=== PATIENT | female | born 1945 | race Caucasian/White ===

== ENCOUNTER 2019-12-07 11:01 | Outpatient (CLI) | payer MEDICARE, SELFPAY ==
--- NOTE | ~2019-12-07 | MMUS_ITS ---
EXAMINATION: MM diagnostic kristina LT w mehran, US breast LT limited HISTORY: Left lateral breast pain for 2 to 3 weeks, resolved over past few days TECHNIQUE: ML, MLO and cc full field and upper outer quadrant spot 3-D tomosynthesis images of the le ft breast were performed and synthetic 2-D images were generated. CAD analysis was submitted and inte rpreted. High resolution upper outer quadrant left breast ultrasound was performed. COMPARISON: 04/07/2019, 08/20/2017, 01/28/2016 bilateral digital screening mammogram examinations BREAST PARENCHYMAL COMPOSITION: There are scattered areas of fibroglandular density. FINDINGS: MAMMOGRAPHIC FINDINGS: Occasional benign calcifications. No suspicious mass or architectural distortion, malignant calcification, skin thickening or retractio n or significant new or developing density is detected. ULTRASOUND: No suspicious mass or shadowing is detected. IMPRESSION: 1. No mammographic evidence of malignancy 2. Routine mammographic screening is recommended. BI-RADS Category 2: Benign finding(s). Reviewed, dictated and finalized at location A. IMPRESSION: 1. No mammographic evidence of malignancy 2. Routine mammographic screening is recommended. BI-RADS Category 2: Benign finding(s).
== END 2019-12-07 11:02 | disposition home or self-care (01) ==
LOC: ANHIMG 11:03
PROVIDERS: PCP Family Medicine; Visit Provider Physician Assistant
DX: N64.4 Mastodynia (principal)
CPT/HCPCS: 76642; 77061; 77065; G0279

== ENCOUNTER 2020-01-14 16:42 | Emergency (ER) | payer MEDICARE, SELFPAY ==
[2020-01-14 17:00] VITALS: BP 181/76; PULSE 86; RESP 18; TEMP 36.9; O2SAT 99
[2020-01-14 17:19] LABS: Basophils Absolute Auto 0.1 K/mm3 (0.0-0.1); Basophils Percent Auto 0.7 % (0.2-1.2); Eosinophils Absolute Auto 0.2 K/mm3 (0-0.3); Eosinophils Percent Auto 1.9 % (0-4.4); Hematocrit 42.8 % (37.0-47.0); Immature Granulocyte Absolute 0.07 K/mm3 (0.00-0.031); Immature Granulocyte Percent A 0.7 % (0-0.5); Lymphocytes Absolute Auto 2.25 K/mm3 (0.9-3.2); Lymphocytes Percent Auto 22.9 % (18.3-44.2); Mean Corpuscular HGB Conc 32.7 g/dl (32-36); Mean Corpuscular Hemoglobin 29.4 pg (26-34); Mean Corpuscular Volume 89.7 fl (80-100); Mean Platelet Volume 9.7 fl (7.4-10.4); Monocytes Absolute Auto 0.6 K/mm3 (0.1-0.6); Neutrophils Absolute Auto 6.7 K/mm3 (1.3-6.7); Neutrophils Percent Auto 67.8 % (45.5-73.1); Platelet Count Result 327 k/mm3 (150-375); Red Blood Count 4.77 M/mm3 (4.2-5.4); Red Cell Distribution Width 13.9 % (11.5-14.5); White Blood Count 9.8 K/mm3 (4.5-10.0)
[2020-01-14 17:23] LABS: Add Urine Microscopic? YES; Appearance Urine Clear (Clear); Bilirubin Urine Negative (Negative); Blood Urine Negative (Negative); Color Urine Straw (Yellow); Glucose Urine UA 3+ mg/dL (Negative); Ketones Urine Negative (Negative); Leukocyte Esterase Ur 1+ LEU/UL (Negative); Nitrate Urine Negative (Negative); Protein Urine 1+ mg/dL (Negative); Specific Grav Ur 1.025 (1.001-1.035); Squamous Epithelial Cell Urine Few /hpf (Few); Urobilinogen Urine Negative mg/dL (<2.0)
[2020-01-14 17:36] LABS: Alanine Aminotransferase 41 U/L (4-35); Albumin Level 4.3 g/dL (3.5-5.1); Alkaline Phosphatase 152 U/L (38-126); Aspartate Amino Transferase 115 U/L (14-36); Bilirubin,Total 0.3 mg/dL (0.2-1.3); Blood Urea Nitrogen 22 mg/dL (7-17); Calcium 9.8 mg/dL (8.4-10.2); Carbon Dioxide 24 mmol/L (22-30); Chloride 96 mmol/L (98-107); Estimated CRCL calculation 45 ml/min; Estimated Glomerular Filt Rate 48; Glucose 505 mg/dL (65-105); Magnesium 1.5 mg/dL (1.6-2.3); Phosphorus 3.5 mg/dL (2.5-4.5); Potassium 4.2 mmol/L (3.4-5.0); Sodium 133 mmol/L (137-145)
[2020-01-14 17:37] LABS: Beta-Hydroxybutyrate/Acetoacetate 0.21 mmol/L (0.02-0.27)
--- NOTE | 2020-01-14 18:05 | ED.DIZZY ---
HPI - Dizziness General Chief Complaint: Dizziness Stated Complaint: dizzy, high blood sugar, from express care Time Seen by Provider: 01/14/20 17:54 History of Present Illness HPI Narrative: Dizziness increasing over the past few months. Worst on standing. Associated with frequent urination and increased thirst. Went to urgent care today and found blood sugar to be greater than 500. She has a h/o type 2 DM and has been stable on metformin 500 mg BID for a long time. She does not check her blood sugar. Related Data Home Medications Medication Instructions Recorded Confirmed metformin 500 mg tablet 500 mg PO BID 06/13/19 11/28/19 metoprolol tartrate 25 mg tablet 25 mg PO DAILY 06/13/19 11/28/19 topiramate 50 mg tablet 50 mg PO DAILY 06/13/19 11/28/19 triamterene 75 1 tablet PO DAILY 06/13/19 11/28/19 mg-hydrochlorothiazide 50 mg tablet alprazolam 1 mg PO HS 01/14/20 bupropion HCl [Wellbutrin SR] 200 mg PO DAILY 01/14/20 fenofibrate nanocrystallized 145 mg PO DAILY 01/14/20 Allergies Allergy/AdvReac Type Severity Reaction Status Date / Time amitriptyline Allergy Unknown Heart race Verified 01/14/20 17:00 fluoxetine Allergy Unknown Acted Verified 01/14/20 17:00 strange sertraline Allergy Unknown Pt does Verified 01/14/20 17:00 not remember Review of Systems Review of Systems: All systems reviewed & are unremarkable except as noted in HPI and below Constitutional: Constitutional: Denies chills and Denies fever(s) ENT: Denies sore throat Cardiovascular: Cardiovascular: Denies chest pain Respiratory: Respiratory: Denies dyspnea Gastrointestinal: Gastrointestinal: Denies abdominal pain, Denies diarrhea, Denies nausea and Denies vomiting Genitourinary: Genitourinary: Denies hematuria, Reports nocturia and Denies dysuria Musculoskeletal: Musculoskeletal: Denies back pain Integumentary/Breasts: Skin/Breast: Denies rash Neurologic: Reports dizziness, Denies syncope and Reports weakness Endocrine: Endocrine: Reports polydipsia and Reports polyuria [facility] Surgical History Surgical History H/O arthroscopy of knee H/O bilateral salpingo-oophorectomy H/O hernia repair H/O: hysterectomy History of bilateral knee replacement History of knee replacement History of tonsillectomy Family History Family History Father Hypertension Family history of lung cancer Patient's father is , Onset Age: 40 Mother Family history of malignant neoplasm of ovary Hypertension Patient's mother is , Onset Age: 73 Grandparent Diabetes mellitus Carcinoma of colon Other Cerebrovascular accident Family history of malignant neoplasm of breast Social History Social History Smoking status: Never smoker Second hand tobacco smoke exposure: No Alcohol intake: never Gender identity (if verbalized by the patient): Female Exam Const: General: healthy appearing, no acute distress and alert Orientation/consciousness: patient oriented x3 HENMT: Mouth: Yes dry mucous membranes Neck: Neck: normal visual inspection and no lymphadenopathy Chest: Chest palpation & inspection: no tenderness Resp: Effort & Inspection: normal respiratory effort Auscultation: clear to auscultation bilaterally, no rales, no rhonchi and no wheezes Cardio: Jugular venous distension: no JVD Rate: regular rate Rhythm: regular rhythm Heart sounds: no murmurs GI: Inspection: non-distended GI Palp: Yes Soft to palpation and No Tenderness to palpation present (GI) Skin: General skin exam: normal color Neuro: General: patient oriented x3 and moves all extremities Speech: normal speech Extrem: General: no edema Psych: Appearance: well kempt Affect: normal affect Course Vital Signs Vital signs: Vital Signs
[2020-01-14] MEDS: INSULIN HUMAN REGULAR (*BKC) 100 UNITS/ML 10 UNITS IV PUSH (18:48)
[2020-01-14] MEDS: SODIUM CHLORIDE 0.9% IV 2,000 ML 999 ML IV CONT (18:48)
[2020-01-14] MEDS: MAGNESIUM SULF 2 GM/WATER 50ML 2 GM/50 ML BAG IVPB (18:52)
[2020-01-14 20:00] LABS: Glucose Point of Care 241 (65-105)
[2020-01-14 20:53] VITALS: PULSE 84; RESP 16; O2SAT 100
[2020-01-15 06:09] LABS: Glucose Point of Care 454 (65-105)
== END 2020-01-14 20:46 | disposition home or self-care (01) ==
PROVIDERS: Emergency Medicine; Emergency Provider Emergency Medicine; PCP Family Medicine
DX: E11.65 Type 2 diabetes mellitus with hyperglycemia (principal); Z79.84 Long term (current) use of oral hypoglycemic drugs; Z96.653 Presence of artificial knee joint, bilateral
CPT/HCPCS: 36415; 80053; 81001; 82010; 82948; 83735; 84100; 85025; 96361; 96365; 96375; 99284; J1815; J3475; J7030

== ENCOUNTER 2020-05-26 16:35 | Emergency (ER) | payer MEDICARE, SELFPAY ==
[2020-05-26] VITALS (14 sets, daily range): BP systolic 144–193; BP diastolic 65–84; PULSE 76–93; RESP 13–20; TEMP 36.2; O2SAT 95–99
--- NOTE | ~2020-05-26 | CT_ITS ---
EXAMINATION: CTA brain carotid DATE: 05/26/2020 20:05 INDICATION: Dizziness. Headache. TECHNIQUE: Computed tomographic angiography (CTA) of the head was performed without and with 100 mL O mnipaque-350 intravenous contrast. CTA of the neck was performed with intravenous contrast. Automated exposure control and iterative reconstruction technique were employed. The dose-length product was 1 136.96 mGy-cm. Maximum intensity projection and volume rendered 3D-reconstructions were created by angelique solorio technologist on a separate workstation. COMPARISON: Head CT 04/25/2020 FINDINGS: HEAD CTA: There are scattered areas of low attenuation in the cerebral white matter. There is no intr acranial hemorrhage, acute infarction, or abnormal intracranial mass lesion. The ventricles are sheela l in size. Right vertebral artery is dominant. There is no significant stenosis of basilar artery or the posterior cerebral arteries. Right posterior communicating artery is normal. There is no signific ant stenosis of the intracranial internal carotid arteries or anterior or middle cerebral arteries. R ight A1 anterior cerebral artery segment is absent, a normal variant. Anterior communicating artery i s normal. There is a 2 mm infundibulum of left posterior communicating artery. No aneurysm. NECK CTA: There is mild scarring at the lung apices. There are no pathologically enlarged lymph nodes . There is no significant stenosis of the vertebral arteries. There is plaque in the proximal interna l carotid arteries. There is 0% stenosis of the proximal right internal carotid artery relative to no rmal distal artery lumen diameter (NASCET criteria). There is 0% stenosis of the proximal left photo intern al carotid artery relative to normal distal artery lumen diameter. There is moderate cervical spondyl osis. IMPRESSION: 1. Moderate nonspecific cerebral white matter disease, which likely represents chronic small vessel i schemic disease. 2. No aneurysm or significant intracranial arterial stenosis. 3. 0% stenosis of the proximal internal carotid arteries relative to normal distal artery lumen diame ters (NASCET criteria). Reviewed, dictated and finalized at location A. NICAL SALES SUPPORT MANAGER IMPRESSION: 1. Moderate nonspecific cerebral white matter disease, which likely represents chronic small vessel ischemic disease. 2. No aneurysm or significant intracranial arterial stenosis. 3. 0% stenosis of the proximal internal carotid arteries relative to normal dis scar artery lumen diameters (NASCET criteria).
--- NOTE | ~2020-05-26 | XR_ITS ---
EXAMINATION: XR chest 2V DATE: 05/26/2020 18:56 INDICATION: Dizziness. Nausea. TECHNIQUE: Frontal and lateral views of the chest were obtained. COMPARISON: Chest 2 views 08/05/2016, CT abdomen and pelvis 11/21/2014 FINDINGS: The chest demonstrates clear lungs without pneumonia, pleural effusion, or pneumothorax. Th e heart size is normal. IMPRESSION: 1. No acute cardiopulmonary disease. Reviewed, dictated and finalized at location A. F LIFESTYLE OFFICER
--- NOTE | ~2020-05-26 | CT_ITS ---
EXAMINATION: CT brain wo con DATE: 05/26/2020 18:49 INDICATION: Dizziness. Headache. TECHNIQUE: Computed tomography (CT) of the head was performed without intravenous contrast. The mA wa s adjusted according to patient size. Iterative reconstruction technique was employed. The dose-lengt h product was 605.33 mGy-cm. COMPARISON: None FINDINGS: There are scattered areas of low attenuation in the cerebral white matter. There is no intr acranial hemorrhage, acute infarction, or abnormal intracranial mass lesion. The ventricles are sheela l in size. The orbits are normal. The mastoid air cells are normal. There is mild mucosal thickening in the ethmoid sinuses. IMPRESSION: 1. Moderate nonspecific cerebral white matter disease, which likely represents chronic small vessel i schemic disease. Reviewed, dictated and finalized at location A. ITURE FABRICATOR IMPRESSION: 1. Moderate nonspecific cerebral white matter disease, which likely represents chronic small vessel ischemic disease.
--- NOTE | 2020-05-26 18:30 | ECG_ITS ---
Measurements Intervals [place] Rate: 81 P: 54 [place]: 194 QRS: 0 QRSD: 145 T: 14 QT: 433 QTc: 506 Interpretive Statements SINUS RHYTHM POSSIBLE LEFT ATRIAL ENLARGEMENT RIGHT BUNDLE BRANCH BLOCK BASELINE ARTIFACT- V4-V5 ABNORMAL ECG Electronically Signed On 05-27-2020 7:52:45 WOODS OVERSEER by Mino Blackwell D.O.
--- NOTE | 2020-05-26 18:36 | ED.HA ---
HPI - Headache General Chief Complaint: Headache Stated Complaint: headache- told by to come in Time Seen by Provider: 05/26/20 18:22 Source: patient Mode of arrival: ambulatory Limitations: no limitations History of Present Illness HPI Narrative: This is a 74 year old female that presents to the ER for headaches x 3 weeks. Reports she has been having headaches daily that are somewhat relieved with ibuprofen. Reports she has been constantly lightheaded. Reports nausea associated with headaches. Denies fever, vision changes, vomiting, numbness or weakness. Related Data Home Medications Medication Instructions Recorded Confirmed metformin 500 mg tablet 500 mg PO BID 06/13/19 11/28/19 metoprolol tartrate 25 mg tablet 25 mg PO DAILY 06/13/19 11/28/19 topiramate 50 mg tablet 50 mg PO DAILY 06/13/19 11/28/19 alprazolam 1 mg PO HS 01/14/20 Allergies Allergy/AdvReac Type Severity Reaction Status Date / Time sertraline Allergy Unknown Pt does Verified 05/26/20 18:03 not remember amitriptyline AdvReac Unknown Heart race Verified 05/26/20 18:03 fluoxetine AdvReac Unknown Acted Verified 05/26/20 18:03 strange Review of Systems Review of Systems: Narrative: CONSTITUTIONAL: Denies fever EYES: Denies visual changes ENT: Denies rhinorrhea, congestion, sore throat CARDIOVASCULAR: Denies chest pain RESPIRATORY: Denies dyspnea. GASTROINTESTINAL: Reports nausea. Denies vomiting GENITOURINARY: Reports dysuria NEUROLOGIC: Reports headache. Denies numbness, or weakness. All systems reviewed & are unremarkable except as noted in HPI and below PMFSH Past Medical History Medical History (Updated 05/26/20 @ 21:22 by Shayla Fletcher PA-C) Cholecystectomy planned Encounter for blood transfusion Essential (primary) hypertension Type 2 diabetes mellitus Surgical History Surgical History H/O arthroscopy of knee H/O bilateral salpingo-oophorectomy H/O hernia repair H/O: hysterectomy History of bilateral knee replacement History of knee replacement History of tonsillectomy Family History Family History Father Hypertension Family history of lung cancer Patient's father is , Onset Age: 40 Mother Family history of malignant neoplasm of ovary Hypertension Patient's mother is , Onset Age: 73 Grandparent Diabetes mellitus Carcinoma of colon Other Cerebrovascular accident Family history of malignant neoplasm of breast Social History Social History (Reviewed 03/30/20 @ 09:08 by Emerita Augustin [facility]) Smoking status: Never smoker Second hand tobacco smoke exposure: No Alcohol intake: never Gender identity (if verbalized by the patient): Female Exam Narrative: Exam Narrative: GENERAL: Well-appearing, well-nourished, and in no acute distress. HEAD: Normocephalic, atraumatic. EYES: PERRLA and EOMI. ENT: Nares clear, no rhinorrhea or epistaxis. Mucous membranes moist. Oropharynx without tonsillar hypertrophy exudate or other lesions. Bilateral TMs pearly milton non-bulging NECK: Supple. No adenopathy or masses. CHEST: Clear to auscultation. No respiratory distress. No wheezes rales or rhonchi HEART: Regular rate and rhythm. No murmur heard. Normal peripheral pulses. EXTREMITIES: Normal range of motion. No edema. Strength equal in bilateral upper and lower extremities (5/5) SKIN: Warm, dry, no rash. NEURO: No focal deficits. Alert and oriented x3. CN II-XII grossly intact PSYCH: Normal mood and affect Course Consultations Consultation #1: Spoke with Dr. Reyna about patient and work-up. Would like her to double up on her losartan/HCTZ. Will follow-up with her in clinic. Date: 05/26/20 Time: 21:21 Vital Signs Vital signs: Vital Signs Temperature 97.1 F L 05/26/20 17:57 Pulse Rate 86 05/26/20 17:57 Respiratory Rate 16 05/26/20 17:57 Bl
[2020-05-26 19:16] LABS: Basophils Percent Auto 0.4 % (0.2-1.2); Eosinophils Absolute Auto 0.3 K/mm3 (0-0.3); Eosinophils Percent Auto 3.5 % (0-4.4); Hematocrit 35.9 % (37.0-47.0); Hemoglobin 12.5 g/dL (12.0-15.0); Immature Granulocyte Absolute 0.02 K/mm3 (0.00-0.031); Immature Granulocyte Percent A 0.2 % (0-0.5); Lymphocytes Absolute Auto 1.55 K/mm3 (0.9-3.2); Lymphocytes Percent Auto 17.3 % (18.3-44.2); Mean Corpuscular HGB Conc 34.8 g/dl (32-36); Mean Corpuscular Volume 86.1 fl (80-100); Mean Platelet Volume 8.8 fl (7.4-10.4); Monocytes Absolute Auto 0.5 K/mm3 (0.1-0.6); Monocytes Percent Auto 5.6 % (2.6-8.5); Neutrophils Absolute Auto 6.5 K/mm3 (1.3-6.7); Platelet Count Result 182 k/mm3 (150-375); Red Blood Count 4.17 M/mm3 (4.2-5.4); Red Cell Distribution Width 13.2 % (11.5-14.5); White Blood Count 8.9 K/mm3 (4.5-10.0)
[2020-05-26 19:27] LABS: Alanine Aminotransferase 23 U/L (4-35); Albumin Level 4.4 g/dL (3.5-5.1); Alkaline Phosphatase 74 U/L (38-126); Anion Gap 13 mmol/L (8-16); Aspartate Amino Transferase 32 U/L (14-36); Bilirubin,Total 0.3 mg/dL (0.2-1.3); Blood Urea Nitrogen 17 mg/dL (7-17); Calcium 9.6 mg/dL (8.4-10.2); Carbon Dioxide 23 mmol/L (22-30); Chloride 93 mmol/L (98-107); Estimated CRCL calculation 42 ml/min; Estimated Glomerular Filt Rate 48; Glucose 87 mg/dL (65-105); Sodium 129 mmol/L (137-145)
[2020-05-26] MEDS: diphenhydrAMINE HCl INJ 50 MG/ML VIAL 25 MG IV PUSH (19:38)
[2020-05-26] MEDS: METOCLOPRAMIDE HCL INJ 10 MG/2 ML VIAL IV PUSH (19:38)
[2020-05-26] MEDS: SODIUM CHLORIDE 0.9% IV 1,000 ML 999 ML IV CONT (19:40)
[2020-05-26 19:51] LABS: Erythrocyte Sedimentation Rate 23 mm/hr (0-20)
[2020-05-26 20:53] LABS: Add Urine Microscopic? YES; Appearance Urine Clear (Clear); Bacteria Urine Trace /hpf; Bilirubin Urine Negative (Negative); Blood Urine Negative (Negative); Color Urine Yellow (Yellow); Glucose Urine UA Negative (Negative); Ketones Urine Negative (Negative); Leukocyte Esterase Ur 2+ LEU/UL (Negative); Mucus Urine Rare /lpf; Nitrate Urine Negative (Negative); Protein Urine Negative (Negative); Specific Grav Ur 1.018 (1.001-1.035); Squamous Epithelial Cell Urine Rare /hpf (Few); Urobilinogen Urine Negative mg/dL (<2.0); WBC Urine 21-30 /hpf
== END 2020-05-26 21:30 | disposition home or self-care (01) ==
PROVIDERS: Physician Assistant; Emergency Provider Emergency Medicine; PCP Family Medicine
DX: R51.9 Headache, unspecified (principal); I10 Essential (primary) hypertension; N30.00 Acute cystitis without hematuria; E11.9 Type 2 diabetes mellitus without complications; Z79.84 Long term (current) use of oral hypoglycemic drugs; Z96.659 Presence of unspecified artificial knee joint; I45.10 Unspecified right bundle-branch block; R94.31 Abnormal electrocardiogram [ECG] [EKG]; R90.82 White matter disease, unspecified
CPT/HCPCS: 36415; 70450; 70496; 70498; 71046; 80053; 81001; 85025; 85652; 87077; 87086; 87088; 87186; 93005; 96361; 96374; 96375; 99284; J0131; J1200; J2765; J7030; Q9967

== ENCOUNTER 2020-10-26 01:46 | Inpatient (IN) | payer MEDICARE, SELFPAY ==
[2020-10-26] VITALS (12 sets, daily range): BP systolic 120–164; BP diastolic 52–70; PULSE 63–111; RESP 12–28; TEMP 36.4–39.3; O2SAT 96–99; BMI 36.3
--- NOTE | ~2020-10-26 | XR_ITS ---
EXAMINATION: XR chest 2V DATE: 10/26/2020 02:22 INDICATION: Shortness of breath. TECHNIQUE: Frontal and lateral views of the chest were obtained. COMPARISON: Chest 2 views 05/26/2020 FINDINGS: The chest demonstrates clear lungs without pneumonia, pleural effusion, or pneumothorax. Th e heart size is normal. IMPRESSION: 1. No acute cardiopulmonary disease. Reviewed, dictated and finalized at location A.
--- NOTE | 2020-10-26 01:58 | ECG_ITS ---
Measurements Intervals [place] Rate: 112 P: 36 CO: 175 QRS: -16 QRSD: 122 T: 15 QT: 344 QTc: 472 Interpretive Statements SINUS TACHYCARDIA POSSIBLE LEFT ATRIAL ENLARGEMENT RIGHT BUNDLE BRANCH BLOCK ABNORMAL ECG Electronically Signed On 10-30-2020 10:42:36 CDT by Mino Blackwell D.O.
[2020-10-26] MEDS: ACETAMINOPHEN 500 MG TABLET 1000 MG PO (02:14)
[2020-10-26 02:15] LABS: Basophils Percent Auto 0.5 % (0.2-1.2); Eosinophils Absolute Auto 0.3 K/mm3 (0-0.3); Eosinophils Percent Auto 4.3 % (0-4.4); Hematocrit 39.5 % (37.0-47.0); Immature Granulocyte Absolute 0.04 K/mm3 (0.00-0.031); Immature Granulocyte Percent A 0.5 % (0-0.5); Lymphocytes Absolute Auto 0.77 K/mm3 (0.9-3.2); Lymphocytes Percent Auto 9.8 % (18.3-44.2); Mean Corpuscular HGB Conc 32.9 g/dl (32-36); Mean Platelet Volume 9.2 fl (7.4-10.4); Monocytes Absolute Auto 0.2 K/mm3 (0.1-0.6); Monocytes Percent Auto 3.1 % (2.6-8.5); Neutrophils Absolute Auto 6.4 K/mm3 (1.3-6.7); Neutrophils Percent Auto 81.8 % (45.5-73.1); Platelet Count Result 176 k/mm3 (150-375); Red Blood Count 4.34 M/mm3 (4.2-5.4); Red Cell Distribution Width 13.4 % (11.5-14.5); White Blood Count 7.8 K/mm3 (4.5-10.0)
[2020-10-26] MEDS: SODIUM CHLORIDE 0.9% IV 1,000 ML 999 ML IV CONT ×2 (02:15→02:33)
[2020-10-26 02:27] LABS: Anion Gap 12 mmol/L (8-16); Blood Urea Nitrogen 32 mg/dL (7-17); Calcium 9.6 mg/dL (8.4-10.2); Carbon Dioxide 20 mmol/L (22-30); Chloride 109 mmol/L (98-107); Estimated CRCL calculation 28 ml/min; Estimated Glomerular Filt Rate 29; Glucose 133 mg/dL (65-105); Potassium 4.6 mmol/L (3.4-5.0); Sodium 141 mmol/L (137-145)
[2020-10-26 03:41] LABS: Add Urine Microscopic? YES; Appearance Urine Cloudy (Clear); Bacteria Urine Trace /hpf; Bilirubin Urine Negative (Negative); Blood Urine Negative (Negative); Color Urine Yellow (Yellow); Glucose Urine UA Negative (Negative); Ketones Urine Negative (Negative); Leukocyte Esterase Ur 3+ LEU/UL (Negative); Mucus Urine Rare /lpf; Nitrate Urine Negative (Negative); Protein Urine 2+ mg/dL (Negative); Specific Grav Ur 1.018 (1.001-1.035); Squamous Epithelial Cell Urine Many /hpf (Few); WBC Urine 51-75 /hpf
--- NOTE | 2020-10-26 04:13 | ED.WEAKNESS ---
HPI - Weakness General Chief complaint: Weakness Stated complaint: weakness, tremors, confusion Time Seen by Provider: 10/26/20 01:59 History of Present Illness HPI Narrative: Patient is a 74-year-old female who presents ER with altered mental status and shakiness. reports patient became very shaky at night like she was cold. They decided leave the house. Upon leaving the house, the ER patient thought she was attending a baby shower and thought the president was Xander Cruz. Patient is not reporting any pain or discomfort. She is confused but not particularly distressed. Febrile upon arrival. Related Data Home Medications Medication Instructions Recorded Confirmed topiramate 50 mg tablet 50 mg PO DAILY 06/13/19 11/28/19 Allergies Allergy/AdvReac Type Severity Reaction Status Date / Time sertraline Allergy Unknown Pt does Verified 10/26/20 02:20 not remember amitriptyline AdvReac Unknown Heart race Verified 10/26/20 02:20 fluoxetine AdvReac Unknown Acted Verified 10/26/20 02:20 strange Review of Systems Review of Systems: All systems reviewed & are unremarkable except as noted in HPI and below Constitutional: Constitutional: Reports chills, Reports fever(s) and Reports weakness Gastrointestinal: Gastrointestinal: Denies abdominal pain, Denies nausea and Denies vomiting Genitourinary: Genitourinary: Denies nocturia, Denies dysuria and Denies flank pain Neurologic: Reports confusion, Denies focal weakness and Denies numbness PMF Past Medical History Medical History (Updated 05/27/20 @ 00:00 by Megan Datamiko) Cholecystectomy planned Encounter for blood transfusion Essential (primary) hypertension Type 2 diabetes mellitus Surgical History Surgical History H/O arthroscopy of knee H/O bilateral salpingo-oophorectomy H/O hernia repair H/O: hysterectomy History of bilateral knee replacement History of knee replacement History of tonsillectomy Family History Family History Father Hypertension Family history of lung cancer Patient's father is , Onset Age: 40 Mother Family history of malignant neoplasm of ovary Hypertension Patient's mother is , Onset Age: 73 Grandparent Diabetes mellitus Carcinoma of colon Other Cerebrovascular accident Family history of malignant neoplasm of breast Social History Social History Smoking status: Never smoker Second hand tobacco smoke exposure: No Alcohol intake: never Gender identity (if verbalized by the patient): Female Exam Narrative: Exam Narrative: GENERAL: Well-appearing, well-nourished, and in no acute distress. HEAD: Normocephalic, atraumatic. ENT: Mucous membranes moist. CHEST: Clear to auscultation. No respiratory distress. HEART: Regular rate and rhythm. Normal peripheral pulses. ABDOMEN: Soft, nontender, nondistended. EXTREMITIES: Normal range of motion. No edema. SKIN: Warm, dry, no rash. NEURO: No focal deficits. Alert and oriented x1 on initial presentation. After fluids and antipyretics patient is now oriented x3.. PSYCH: Normal mood and affect. Course Course Emergency Course: Patient improving with IV fluid and IV antibiotics. Given ceftriaxone 2 L IV fluid. She is now awake alert and oriented x3. Patient's creatinine up from baseline of 1.1. Given confusion with elevated creatinine and infection would like to observe patient in hospital. Will contact hospitalist service. Vital Signs Vital signs: Vital Signs Temperature 102.8 F H 10/26/20 01:55 Pulse Rate 104 H 10/26/20 01:55 Respiratory Rate 18 10/26/20 01:55 Blood Pressure 164/67 H 10/26/20 01:55 Pulse Oximetry 96 10/26/20 01:55 Temperature 98.4 F 10/26/20 03:10 Pulse Rate 98 10/26/20 05:00 Respiratory Rate
--- NOTE | 2020-10-26 05:06 | PM.IMHP ---
H&P: HPI History of Present Illness Date/Time: 10/26/20 05:06 Chief Complaint: Weakness and confusion Narrative: 74-year-old female was about mental history of type 2 diabetes mellitus, chronic kidney disease stage 3, and hypertension who presented to the ER with confusion and weakness. Initially on arrival to the ER the patient thought she that she was going to a baby shower. She also thought that her son had brought her to the bank and did not understand why she needed to get out of the car. Evidently the patient had woken up having rigors and sudden onset of confusion. While in the ER patient was noted to have UA suggestive of UTI in her fever was 102.8?. The patient received IV fluid hydration with 2 L normal saline and IV Rocephin. After fluid resuscitation and antipyretic therapy the patient's mentation returned to baseline. She is now where that she is in [facility] and is oriented x4. She states that she has been generally weak for the last week. She has been having some dysuria also for the last week. She does have a history of prior urinary tract infections and had been referred to urology in June due to recurrent urinary tract infections but she failed to follow through with the referral. Her urine culture in May grew out Klebsiella pneumonia resistant to Bactrim and ampicillin. She did not like the idea of the physician having to examine her urethra vagina and rectum. She denies any hematuria, increased urinary frequency or urgency. She reports that she has been more fatigued and is been sleeping more than normal. She has also noticed some dizziness with standing. She denies any nausea vomiting or diarrhea. She reports that her appetite has been fair and that her weight is been stable. She denies any cough or congestion. She has not been having any shortness of breath, chest pain, headaches or visual changes. She realizes that she was quite confused earlier and is quite abused about the answer she provided to the staff in the ER. Review of Systems Review of Systems: Narrative: 12 systems were reviewed with pertinent positives and negatives per HPI. Except as documented in the HPI, all other systems were reviewed and are negative. [facility] Past Medical History Medical History (Updated 10/26/20 @ 05:37 by Janice Curtis DO) Chronic kidney disease, stage III (moderate) With baseline creatinine 1.1 Depression with anxiety Essential (primary) hypertension Gastro-esophageal reflux disease without esophagitis Gout Hyperlipidemia Hypertriglyceridemia Normal colonoscopy (~2009) Obesity Other sleep apnea will not use cpap Type 2 diabetes mellitus Surgical History Surgical History (Updated 10/26/20 @ 05:35 by Janice Curtis DO) H/O arthroscopy of knee History of bilateral knee replacement Left total knee arthroplasty 1998 with subsequent revision in 2010. Right total knee arthroplasty 1998 with revision in 2007. History of hernia repair (~2006) Incisional hernia repair with mesh History of laparoscopic cholecystectomy (05/08/11) History of right hip replacement (~07/2013) History of tonsillectomy History of total hysterectomy with bilateral salpingo-oophorectomy (BSO) Hysterectomy in 1985, bilateral oophorectomy 2002 Status post cataract extraction of both eyes with insertion of intraocular lens Family History Family History Father , at age 40 Lung cancer Carcinoma of colon Hypertension Mother , at age 73 Ovarian cancer Hypertension Grandparent Diabetes mellitus Carcinoma of colon Family history of malignant neoplasm of breast Grandparent Cerebrovascular accident Other Family history of malignant neoplasm of breast Social History Social History (Updated 10/26/20 @ 07:04 by Janice Curtis DO) Social History: She lives with her of 57 years. She has 1 biologic son and 2 adopted daugh
[2020-10-26 05:07] LABS: Lactic Acid Reflex 1.7 mmol/L (0.7-2.1)
--- NOTE | 2020-10-26 05:24 | ADMGEN ---
This patient, Joie Faust, was admitted to Medical Room 340-01. Patient/family oriented to hospital policies and general routines including ID bracelet, bed and alarms, visiting hours, pain management, procedures, bathroom and other care routines, personal items, smoking policy, room service/diet, and visiting hours. Information on how to activate the Rapid Response Team has been discussed. Patient/Family are encouraged to report perceived risks to care and to ask questions if they do not understand what they are told or what they should do.
[2020-10-26] MEDS: SODIUM CHLORIDE 0.9% IV 1,000 ML 125 ML IV CONT ×2 (05:28→14:48)
[2020-10-26 08:01] LABS: Glucose Point of Care 122 (65-105)
[2020-10-26] MEDS: ENOXAPARIN 30 MG/0.3 ML SYRINGE SUB-Q (08:19)
[2020-10-26] MEDS: PANTOPRAZOLE 40 MG TABLET PO (08:20)
[2020-10-26] MEDS: ATORVASTATIN 20 MG TABLET PO (08:20)
[2020-10-26] MEDS: allopurinoL 300 MG TABLET PO (08:20)
[2020-10-26] MEDS: TOPIRAMATE 25 MG TABLET 50 MG PO (08:20)
[2020-10-26] MEDS: LOSARTAN POTASSIUM 50 MG TABLET PO (08:20)
[2020-10-26] MEDS: buPROPion HCL SR (12HR) 100 MG TABCR 200 MG PO ×2 (08:21→20:28)
[2020-10-26] MEDS: hydroCHLOROthiazide 12.5 MG CAPSULE PO (08:21)
[2020-10-26] MEDS: FENOFIBRATE NANOCRYSTALLIZED 145 MG TABLET PO (08:21)
[2020-10-26] MEDS: METOPROLOL TARTRATE 25 MG TABLET PO (08:21)
[2020-10-26] MEDS: ALPRAZolam (*CRX) 0.5 MG TABLET 1 MG PO ×2 (08:24→16:55)
[2020-10-26 12:15] LABS: Glucose Point of Care 112 (65-105)
--- NOTE | 2020-10-26 13:27 | PM.IMPN ---
Progress Note: A&P Assessment and Plan (1) UTI (urinary tract infection): Qualifiers: Hematuria presence: without hematuria Urinary tract infection type: acute cystitis Qualified Code(s): N30.00 - Acute cystitis without hematuria Code(s): N39.0 - Urinary tract infection, site not specified Status: Acute Assessment and Plan: Patient presents with acute confusion x 1 day and generalized weakness x several days, fevers, dysuria. UA grossly abnormal. Continue her IV ceftriaxone (day 2) while awaiting urine and blood cultures. (2) Sepsis: Qualifiers: Acute renal failure type: unspecified Sepsis acute organ dysfunction status: with acute organ dysfunction Sepsis type: sepsis due to unspecified organism Severe sepsis acute organ dysfunction type: acute renal failure Severe sepsis shock status: without septic shock Qualified Code(s): A41.9 - Sepsis, unspecified organism; R65.20 - Severe sepsis without septic shock; N17.9 - Acute kidney failure, unspecified Code(s): A41.9 - Sepsis, unspecified organism Status: Acute Assessment and Plan: Evident by fever, tachycardia on arrival. Suspected source is urinary. Continue antibiotics as above while awaiting urine and blood cultures. Monitor vital signs and urine output. (3) Metabolic encephalopathy: Code(s): G93.41 - Metabolic encephalopathy Status: Acute Assessment and Plan: Resolved. No longer confused. She is sleepy today but tells me she did not sleep well last night. Suspect metabolic encephalopathy secondary to acute UTI with fevers. Resolved with initiation of treatment. Continue therapy above. (4) Essential (primary) hypertension: Code(s): I10 - Essential (primary) hypertension Status: Chronic Assessment and Plan: Blood pressures reviewed, variable but stable this morning losartan, hydrochlorothiazide, Lopressor. Hold hydrochlorothiazide given her renal function. (5) Type 2 diabetes mellitus: Qualifiers: Diabetes mellitus complication status: without complication Diabetes mellitus custodial insulin use: without custodial use Qualified Code(s): E11.9 - Type 2 diabetes mellitus without complications Code(s): E11.9 - Type 2 diabetes mellitus without complications Status: Chronic Assessment and Plan: Check Hgb A1c in AM. Home metformin is held. Continue to monitor with Accu-Cheks and cover with SSI. (6) Chronic kidney disease, stage III (moderate): Qualifiers: Chronic kidney disease stage 3 subtype: unspecified whether 3a or 3b Qualified Code(s): N18.30 - Chronic kidney disease, stage 3 unspecified Code(s): N18.30 - Chronic kidney disease, stage 3 unspecified Status: Chronic Assessment and Plan: Acute on chronic renal failure; her Cr is a bit above what appears to be her baseline may be related to recent poor PO intake. Hold metformin, hydrochlorothiazide. Continue IV hydration, decreased rate of fluids. Monitor renal function and electrolytes daily. Subjective Date/time seen: 10/26/20 1235 Interval history: Ms. Faust is a 74yo F admitted with acute UTI and confusion. She is tired but is feeling better today overall. She denies chest pain or shortness of breath. Denies nausea, vomiting or abdominal pain. Sleepy but otherwise offers no complaints. Review of Systems Review of Systems: All systems reviewed & are unremarkable except as noted in HPI and below Exam Narrative: Exam Narrative: General: Female resting Semi-woodson's position in bed in no acute distress. HEENT: Normocephalic, EOMI, oral mucosa moist. Cardiovascular: Rate and rhythm are regul
[2020-10-26 16:16] LABS: Glucose Point of Care 101 (65-105)
[2020-10-26 22:13] LABS: Glucose Point of Care 86 (65-105)
[2020-10-27] MEDS: ACETAMINOPHEN 325 MG TABLET 650 MG PO (00:03)
[2020-10-27] MEDS: SODIUM CHLORIDE 0.9% IV 1,000 ML 100 ML IV CONT ×3 (00:06→21:15)
[2020-10-27 05:36] VITALS: BP 121/50; PULSE 71; RESP 12; TEMP 37.1; O2SAT 94
[2020-10-27 06:18] LABS: Hematocrit 29.8 % (37.0-47.0); Hemoglobin 9.7 g/dL (12.0-15.0); Mean Corpuscular HGB Conc 32.6 g/dl (32-36); Mean Corpuscular Hemoglobin 29.8 pg (26-34); Mean Corpuscular Volume 91.7 fl (80-100); Mean Platelet Volume 9.3 fl (7.4-10.4); Platelet Count Result 156 k/mm3 (150-375); Red Blood Count 3.25 M/mm3 (4.2-5.4); Red Cell Distribution Width 13.4 % (11.5-14.5); White Blood Count 9.3 K/mm3 (4.5-10.0)
[2020-10-27 06:31] LABS: Anion Gap 7 mmol/L (8-16); Blood Urea Nitrogen 26 mg/dL (7-17); Calcium 8.8 mg/dL (8.4-10.2); Carbon Dioxide 21 mmol/L (22-30); Chloride 113 mmol/L (98-107); Estimated CRCL calculation 35 ml/min; Estimated Glomerular Filt Rate 37; Glucose 110 mg/dL (65-105); Magnesium 1.5 mg/dL (1.6-2.3); Sodium 141 mmol/L (137-145)
[2020-10-27 06:52] LABS: Hemoglobin A1C 5.7 % (<5.7)
[2020-10-27 07:36] LABS: Glucose Point of Care 93 (65-105)
[2020-10-27 08:24] VITALS: PULSE 74
[2020-10-27] MEDS: PANTOPRAZOLE 40 MG TABLET PO (08:24)
[2020-10-27] MEDS: ALPRAZolam (*CRX) 0.5 MG TABLET 1 MG PO ×2 (08:24→16:49)
[2020-10-27] MEDS: ENOXAPARIN 30 MG/0.3 ML SYRINGE SUB-Q (08:24)
[2020-10-27] MEDS: FENOFIBRATE NANOCRYSTALLIZED 145 MG TABLET PO (08:24)
[2020-10-27] MEDS: TOPIRAMATE 25 MG TABLET 50 MG PO (08:24)
[2020-10-27] MEDS: METOPROLOL TARTRATE 25 MG TABLET PO (08:24)
[2020-10-27] MEDS: buPROPion HCL SR (12HR) 100 MG TABCR 200 MG PO ×2 (08:24→21:15)
[2020-10-27] MEDS: allopurinoL 300 MG TABLET PO (08:24)
[2020-10-27] MEDS: LOSARTAN POTASSIUM 50 MG TABLET PO (08:25)
[2020-10-27] MEDS: ATORVASTATIN 20 MG TABLET PO (08:25)
[2020-10-27] MEDS: MAGNESIUM SULF 2 GM/WATER 50ML 2 GM/50 ML BAG IVPB (09:35)
[2020-10-27 12:36] LABS: Glucose Point of Care 124 (65-105)
--- NOTE | 2020-10-27 12:55 | PM.IMPN ---
Progress Note: A&P Assessment and Plan (1) UTI (urinary tract infection): Qualifiers: Urinary tract infection type: acute cystitis Hematuria presence: without hematuria Qualified Code(s): N30.00 - Acute cystitis without hematuria Code(s): N39.0 - Urinary tract infection, site not specified Status: Acute Assessment and Plan: Patient presents with acute confusion x 1 day and generalized weakness x several days, fevers, dysuria. UA grossly abnormal. Continue her IV ceftriaxone (day 3) while awaiting urine and blood cultures. (2) Sepsis: Qualifiers: Sepsis type: sepsis due to unspecified organism Sepsis acute organ dysfunction status: with acute organ dysfunction Severe sepsis acute organ dysfunction type: acute renal failure Acute renal failure type: unspecified Severe sepsis shock status: without septic shock Qualified Code(s): A41.9 - Sepsis, unspecified organism; R65.20 - Severe sepsis without septic shock; N17.9 - Acute kidney failure, unspecified Code(s): A41.9 - Sepsis, unspecified organism Status: Acute Assessment and Plan: Evident by fever, tachycardia on arrival. Suspected source is urinary. Continue antibiotics as above while awaiting urine and blood cultures. Monitor vital signs and urine output. (3) Metabolic encephalopathy: Code(s): G93.41 - Metabolic encephalopathy Status: Acute Assessment and Plan: Resolved. No longer confused. Suspect metabolic encephalopathy secondary to acute UTI with fevers. Resolved with initiation of treatment. Continue therapy above. (4) Essential (primary) hypertension: Code(s): I10 - Essential (primary) hypertension Status: Chronic Assessment and Plan: Blood pressures reviewed, variable but stable this morning losartan, hydrochlorothiazide, Lopressor. Hold hydrochlorothiazide given her renal function. (5) Type 2 diabetes mellitus: Qualifiers: Diabetes mellitus exterminator helper insulin use: without half-way use Diabetes mellitus complication status: without complication Qualified Code(s): E11.9 - Type 2 diabetes mellitus without complications Code(s): E11.9 - Type 2 diabetes mellitus without complications Status: Chronic Assessment and Plan: A1c 5.7%. Home metformin is held. Continue to monitor with Accu-Cheks and cover with SSI. (6) Chronic kidney disease, stage III (moderate): Qualifiers: Chronic kidney disease stage 3 subtype: unspecified whether 3a or 3b Qualified Code(s): N18.30 - Chronic kidney disease, stage 3 unspecified Code(s): N18.30 - Chronic kidney disease, stage 3 unspecified Status: Chronic Assessment and Plan: Acute on chronic renal failure; her Cr is a bit above what appears to be her baseline may be related to recent poor PO intake. Improved today. Hold metformin, hydrochlorothiazide. Continue IV hydration for now; and monitor fluid status closely and check renal function and electrolytes daily. Subjective Date/time seen: 10/27/20 1200 Interval history: Ms. Faust is a 74yo F admitted with acute UTI and confusion. She is feeling better today. She denies chest pain or shortness of breath. Tolerating meals without nausea, vomiting or abdominal pain. She describes some chronic back pain and hip pain but otherwise offers no complaints at present. Review of Systems Review of Systems: All systems reviewed & are unremarkable except as noted in HPI and below Exam Narrative: Exam Narrative: General: Female resting Semi-woodson's position in bed in no acute distress. HEENT: Normocephalic, EOMI, oral mucosa moist. Cardiovascular: Rate and rhythm are re
[2020-10-27 14:00] VITALS: BP 143/60; PULSE 72; RESP 16; TEMP 36.6; O2SAT 98
[2020-10-27 16:37] LABS: Glucose Point of Care 99 (65-105)
[2020-10-27 19:54] VITALS: BP 178/70; PULSE 66; RESP 12; TEMP 36.2; O2SAT 100
[2020-10-27 20:36] VITALS: O2SAT 99
[2020-10-27 22:44] LABS: Glucose Point of Care 123 (65-105)
[2020-10-28 05:37] VITALS: BP 156/54; PULSE 72; RESP 14; TEMP 36.8; O2SAT 99
[2020-10-28 06:17] LABS: Basophils Percent Auto 0.5 % (0.2-1.2); Eosinophils Absolute Auto 0.3 K/mm3 (0-0.3); Eosinophils Percent Auto 4.2 % (0-4.4); Hematocrit 32.2 % (37.0-47.0); Hemoglobin 10.4 g/dL (12.0-15.0); Immature Granulocyte Absolute 0.05 K/mm3 (0.00-0.031); Immature Granulocyte Percent A 0.6 % (0-0.5); Lymphocytes Absolute Auto 1.67 K/mm3 (0.9-3.2); Lymphocytes Percent Auto 21.7 % (18.3-44.2); Mean Corpuscular HGB Conc 32.3 g/dl (32-36); Mean Corpuscular Hemoglobin 29.7 pg (26-34); Mean Platelet Volume 9.5 fl (7.4-10.4); Monocytes Absolute Auto 0.6 K/mm3 (0.1-0.6); Monocytes Percent Auto 7.9 % (2.6-8.5); Neutrophils Percent Auto 65.1 % (45.5-73.1); Platelet Count Result 168 k/mm3 (150-375); Red Cell Distribution Width 13.9 % (11.5-14.5); White Blood Count 7.7 K/mm3 (4.5-10.0)
[2020-10-28 06:24] LABS: INR 0.9; Prothrombin Time 13.2 Seconds (11.1-14.7)
[2020-10-28] MEDS: SODIUM CHLORIDE 0.9% IV 1,000 ML 100 ML IV CONT (06:27)
[2020-10-28 06:30] LABS: Alanine Aminotransferase 17 U/L (4-35); Albumin Level 3.7 g/dL (3.5-5.1); Alkaline Phosphatase 65 U/L (38-126); Anion Gap 10 mmol/L (8-16); Aspartate Amino Transferase 21 U/L (14-36); Bilirubin,Total < 0.1 mg/dL (0.2-1.3); Blood Urea Nitrogen 21 mg/dL (7-17); Calcium 9.2 mg/dL (8.4-10.2); Carbon Dioxide 19 mmol/L (22-30); Chloride 115 mmol/L (98-107); Estimated CRCL calculation 35 ml/min; Estimated Glomerular Filt Rate 37; Glucose 131 mg/dL (65-105); Sodium 144 mmol/L (137-145)
[2020-10-28 06:37] LABS: Transferrin 183 mg/dL (206-381)
[2020-10-28 06:44] LABS: Iron 47 ug/dL (37-170)
[2020-10-28 06:54] LABS: Percent Iron Saturation 18 % (20-50)
[2020-10-28 07:41] LABS: Folic Acid > 20.0 ng/mL (2.76->20)
[2020-10-28 07:46] LABS: Glucose Point of Care 107 (65-105)
[2020-10-28] MEDS: ALPRAZolam (*CRX) 0.5 MG TABLET 1 MG PO (08:02)
[2020-10-28 08:03] VITALS: PULSE 72
[2020-10-28] MEDS: METOPROLOL TARTRATE 25 MG TABLET PO (08:03)
[2020-10-28] MEDS: FENOFIBRATE NANOCRYSTALLIZED 145 MG TABLET PO (08:03)
[2020-10-28] MEDS: allopurinoL 300 MG TABLET PO (08:03)
[2020-10-28] MEDS: ATORVASTATIN 20 MG TABLET PO (08:03)
[2020-10-28] MEDS: PANTOPRAZOLE 40 MG TABLET PO (08:03)
[2020-10-28] MEDS: buPROPion HCL SR (12HR) 100 MG TABCR 200 MG PO (08:03)
[2020-10-28] MEDS: TOPIRAMATE 25 MG TABLET 50 MG PO (08:03)
[2020-10-28] MEDS: ENOXAPARIN 30 MG/0.3 ML SYRINGE SUB-Q (08:03)
[2020-10-28] MEDS: LOSARTAN POTASSIUM 50 MG TABLET PO (08:04)
[2020-10-28] MEDS: CYANOCOBALAMIN INJ 1,000 MCG/ML VIAL 1000 MCG IM (10:36)
[2020-10-28 12:01] LABS: Glucose Point of Care 106 (65-105)
--- NOTE | 2020-10-28 12:08 | PM.DS ---
DS: Admitting Diagnosis Admitting Diagnosis Admitting Diagnosis: UTI DS: Discharge Diagnosis Discharge Diagnosis (1) UTI (urinary tract infection): Qualifiers: Urinary tract infection type: acute cystitis Hematuria presence: without hematuria Qualified Code(s): N30.00 - Acute cystitis without hematuria Code(s): N39.0 - Urinary tract infection, site not specified Status: Acute Assessment and Plan: Date of Admission 10/26/20 Date of Discharge 10/28/20 Ms. Faust is a 74yo F with history of type 2 diabetes mellitus, CKD, and hypertension who presented to the ED for evaluation of confusion and weakness. It was reported the patient had woken up having shaking chills and sudden onset of confusion. While in the ED patient was noted to have a UA suggestive of UTI and her fever was 102.8 F. She received IV fluid hydration 2 L normal saline as well as IV ceftriaxone and antipyretic therapy, after which her mentation returned to baseline. She was treated with 3 doses of IV ceftriaxone while awaiting urine and blood cultures. Blood cultures are negative, urine culture grew > 100,000 E coli. Sepsis criteria was met by fever, tachycardia on arrival which improved. She was clinically improved with therapy outlined above and was discharged with oral cefdinir to complete the course. She was hemodynamically stable for discharge on 10/28/2020 with instructions to follow-up with PCP. Patient presents with acute confusion x 1 day and generalized weakness x several days, fevers, dysuria. UA grossly abnormal. Urine culture grew E coli. Blood culture negative. Treated with 3 doses of IV ceftriaxone, discharged with oral cefdinir to complete course. (2) Sepsis: Qualifiers: Sepsis type: sepsis due to unspecified organism Sepsis acute organ dysfunction status: with acute organ dysfunction Severe sepsis acute organ dysfunction type: acute renal failure Acute renal failure type: unspecified Severe sepsis shock status: without septic shock Qualified Code(s): A41.9 - Sepsis, unspecified organism; R65.20 - Severe sepsis without septic shock; N17.9 - Acute kidney failure, unspecified Code(s): A41.9 - Sepsis, unspecified organism Status: Acute Assessment and Plan: Evident by fever, tachycardia on arrival. Suspected source is urinary, see above. (3) Metabolic encephalopathy: Code(s): G93.41 - Metabolic encephalopathy Status: Acute Assessment and Plan: Resolved. No longer confused. Suspect metabolic encephalopathy secondary to acute UTI with fevers. Resolved with initiation of treatment. (4) Essential (primary) hypertension: Code(s): I10 - Essential (primary) hypertension Status: Chronic Assessment and Plan: Blood pressures reviewed, variable but stable this morning losartan, hydrochlorothiazide, Lopressor. (5) Type 2 diabetes mellitus: Qualifiers: Diabetes mellitus termite treater insulin use: without termite treater use Diabetes mellitus complication status: without complication Qualified Code(s): E11.9 - Type 2 diabetes mellitus without complications Code(s): E11.9 - Type 2 diabetes mellitus without complications Status: Chronic Assessment and Plan: A1c 5.7%. Home metformin is held. Continue to monitor with Accu-Cheks and cover with SSI. (6) Chronic kidney disease, stage III (moderate): Qualifiers: Chronic kidney disease stage 3 subtype: unspecified whether 3a or 3b Qualified Code(s): N18.30 - Chronic kidney disease, stage 3 unspecified Code(s): N18.30 - Chronic kidney disease, stage 3 unspecified Status: Chronic Assessment and Plan: Acute on c
[2020-10-28 14:10] VITALS: BP 157/77; PULSE 69; RESP 24; TEMP 36.2; O2SAT 97
== END 2020-10-28 14:40 | disposition home or self-care (01) | DRG 871 ==
LOC: ANHED 02:45 → ANH3MED 04:46
PROVIDERS: Physician Assistant; Admitting Provider Internal Medicine; Emergency Provider Emergency Medicine; PCP Family Medicine; Visit Provider Hospitalist
DX: A41.9 Sepsis, unspecified organism (principal); G93.41 Metabolic encephalopathy; N39.0 Urinary tract infection, site not specified; N17.9 Acute kidney failure, unspecified; R65.20 Severe sepsis without septic shock; E11.22 Type 2 diabetes mellitus with diabetic chronic kidney disease; N18.30 Chronic kidney disease, stage 3 unspecified; I12.9 Hypertensive chronic kidney disease with stage 1 through stage 4 chronic kidney disease, or unspecified chronic kidney disease; F41.8 Other specified anxiety disorders; K21.9 Gastro-esophageal reflux disease without esophagitis; E78.5 Hyperlipidemia, unspecified; E66.9 Obesity, unspecified; G47.30 Sleep apnea, unspecified; Z96.653 Presence of artificial knee joint, bilateral; Z96.641 Presence of right artificial hip joint; Z68.36 Body mass index [BMI] 36.0-36.9, adult; Z90.722 Acquired absence of ovaries, bilateral; Z90.710 Acquired absence of both cervix and uterus; Z98.42 Cataract extraction status, left eye; Z98.41 Cataract extraction status, right eye; Z90.49 Acquired absence of other specified parts of digestive tract
CPT/HCPCS: 36415; 71046; 80048; 80053; 81001; 82607; 82728; 82746; 82948; 83036; 83540; 83550; 83605; 83735; 84466; 85025; 85027; 85610; 87040; 87077; 87086; 87088; 87186; 93005; 96361; 96365; 96372; 99285; A9270; G0378; J0696; J1650; J3420; J3475; J7030

== ENCOUNTER 2020-12-12 12:56 | Outpatient (CLI) | payer MEDICARE, SELFPAY ==
--- NOTE | ~2020-12-12 | MM_ITS ---
EXAMINATION: MM screening kristina BI w mehran HISTORY: Screening mammogram TECHNIQUE: Craniocaudal and mediolateral oblique 3-D tomosynthesis images were obtained and synthetic 2-D images were generated. CAD analysis was submitted and interpreted. COMPARISON: 12/07/2019 diagnostic left digital mammogram and limited left breast ultrasound 04/07/2019, 08/20/2017 bilateral digital screening mammogram examinations BREAST PARENCHYMAL COMPOSITION: There are scattered areas of fibroglandular density. FINDINGS: Bilateral benign calcifications including arterial and secretory. There is no evidence of s uspicious mass, calcification, or architectural distortion to suggest malignancy in either breast. Th ere has been no suspicious interval change. IMPRESSION: 1. No mammographic evidence of malignancy. 2. Recommend routine screening mammography in one year. BI-RADS Category 2: Benign finding(s). Reviewed, dictated and finalized at location D.
== END 2020-12-12 12:57 | disposition home or self-care (01) ==
LOC: ANHIMG 12:59
PROVIDERS: PCP Family Medicine; Visit Provider Family Medicine
DX: Z12.31 Encounter for screening mammogram for malignant neoplasm of breast (principal)
CPT/HCPCS: 77063; 77067

== ENCOUNTER 2022-10-27 15:18 | Outpatient (CLI) | payer MEDICARE, SELFPAY ==
--- NOTE | ~2022-10-27 | MM_ITS ---
EXAMINATION: MM screening kristina BI w mehran HISTORY: Screening mammogram TECHNIQUE: Craniocaudal and mediolateral oblique 3-D tomosynthesis images were obtained and synthetic 2-D images were generated. CAD analysis was submitted and interpreted. COMPARISON: 12/12/2020 bilateral screening mammogram 12/06/2020 diagnostic left mammogram and limited left breast ultrasound 04/07/2019 bilateral screening mammogram BREAST PARENCHYMAL COMPOSITION: There are scattered areas of fibroglandular density. FINDINGS: Bilateral benign calcifications, including secretory type calcifications, arterial calcific ations. There is no evidence of suspicious mass, calcification, or architectural distortion to sugges t malignancy in either breast. There has been no suspicious interval change. IMPRESSION: 1. No mammographic evidence of malignancy. 2. Recommend routine screening mammography in one year. BI-RADS Category 2: Benign finding(s). Reviewed, dictated and finalized at location A.
== END 2022-10-27 15:19 | disposition home or self-care (01) ==
LOC: ANHIMG 15:36
PROVIDERS: PCP Emergency Medicine; Visit Provider Physician Assistant
DX: Z12.31 Encounter for screening mammogram for malignant neoplasm of breast (principal)
CPT/HCPCS: 77063; 77067

== ENCOUNTER 2022-11-06 17:08 | Emergency (ER) | payer MEDICARE, SELFPAY ==
--- NOTE | ~2022-11-06 | XR_ITS ---
XR hip RT 2V w AP pelvis 11/06/2022 17:35 Indication: Status post fall. Radiating pain. Procedure: AP pelvis and 2 views right hip Comparison: No prior studies for comparison. Findings: There is a right total hip arthroplasty. Prosthesis well seated. Pelvic rings are intact. S acral foramen are symmetric. No acute fracture or traumatic malalignment. Impression: 1: No acute bone or joint abnormality. Reviewed, dictated and finalized at location A. Impression: 1: No acute bone or joint abnormality.
--- NOTE | ~2022-11-06 | XR_ITS ---
EXAMINATION: [id number]_[id number]_CR DATE: 11/06/2022 17:35 INDICATION: Right knee pain post fall 4 weeks prior TECHNIQUE: AP and lateral views of the right knee were obtained. COMPARISON: None. FINDINGS: Right total knee arthroplasty with patellar resurfacing which appears well seated in near-anatomic al ignment. No periprosthetic lucency to suggest loosening or infection. No fracture. Small right knee j oint effusion versus synovitis at the suprapatellar pouch. IMPRESSION: 1. Right total knee arthroplasty with small knee joint effusion but no acute osseous abnormality. Reviewed, dictated and finalized at location A. IMPRESSION: 1. Right total knee arthroplasty with small knee joint effusion but no acute os seous abnormality.
[2022-11-06 17:40] VITALS: BP 150/67; PULSE 78; RESP 16; TEMP 36.8; O2SAT 96
--- NOTE | 2022-11-06 19:38 | ED.FALL ---
HPI - Fall General Chief Complaint: Fall Stated Complaint: fall- needs xrays Time Seen by Provider: 11/06/22 19:19 History of Present Illness HPI Narrative: Patient is a 76-year-old female here for evaluation of her right hip. The pain after a fall 3 weeks ago. Patient states that she tripped and fell landing on her stomach about 4 weeks ago. Since then she has had swelling and pain around her knee and in her hip. She has been taking ibuprofen for her symptoms. Reports some swelling in her right calf. No history of blood clots. No chest pain, shortness of breath, swelling in the left leg Related Data Allergies Allergy/AdvReac Type Severity Reaction Status Date / Time sertraline Allergy Unknown Pt does Verified 11/06/22 17:45 not remember amitriptyline AdvReac Unknown Heart race Verified 11/06/22 17:45 fluoxetine AdvReac Unknown Acted Verified 11/06/22 17:45 strange Review of Systems Review of Systems: Gen.: Denies fevers or chills Eyes: Denies eye pain or visual change ENT: Denies congestion Respiratory: Denies shortness of breath or cough CV: Denies chest pain or palpitations GI: Denies abdominal pain nausea, emesis or diarrhea denies burning, urgency, frequency or hematuria Musculoskeletal: Reports knee hip and calf pain Neuro: Denies numbness, tingling, weakness or focal weakness Skin: Denies rash Except as documented, all other systems reviewed and negative [facility] Past Medical History Medical History Abscess Anemia Chronic kidney disease, stage III (moderate) With baseline creatinine 1.1 Depression with anxiety Essential (primary) hypertension Gastro-esophageal reflux disease without esophagitis Gout Hyperlipidemia Hypertriglyceridemia Metabolic encephalopathy Normal colonoscopy (~2009) Obesity Other sleep apnea will not use cpap Sepsis Type 2 diabetes mellitus UTI (urinary tract infection) Surgical History Surgical History H/O arthroscopy of knee History of bilateral knee replacement Left total knee arthroplasty 1998 with subsequent revision in 2010. Right total knee arthroplasty 1998 with revision in 2007. History of hernia repair (~2006) Incisional hernia repair with mesh History of laparoscopic cholecystectomy (05/08/11) History of right hip replacement (~07/2013) History of tonsillectomy History of total hysterectomy with bilateral salpingo-oophorectomy (BSO) Hysterectomy in 1985, bilateral oophorectomy 2002 Status post cataract extraction of both eyes with insertion of intraocular lens Family History Family History Father , at age 40 Lung cancer Carcinoma of colon Hypertension Mother , at age 73 Ovarian cancer Hypertension Grandparent Diabetes mellitus Carcinoma of colon Family history of malignant neoplasm of breast Grandparent Cerebrovascular accident Other Family history of malignant neoplasm of breast Son Lung cancer Social History Social History Social History: She lives with her of 57 years. She has 1 biologic son and 2 adopted daughters. 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 Primary care physician: Dr. Tony Peralta Code status: Full code Surrogate decision maker: Smoking status: Never smoker Second hand tobacco smoke exposure: No Alcohol intake: never Substance use: never Lack of Transportation: No Lack of Food: Never True Current Housing: I Have Housing Concerned About Future Housing: No Difficulty Paying Gas/Electric Bills: No Difficulty Paying for Meds: No Currently Unemployed: No Education: High School Diploma/GED Difficulty w/ Childcare or Family Care: No G
[2022-11-06 20:07] LABS: Basophils Absolute Auto 0.1 K/mm3 (0.0-0.1); Basophils Percent Auto 0.7 % (0.2-1.2); Eosinophils Absolute Auto 0.5 K/mm3 (0-0.3); Eosinophils Percent Auto 4.4 % (0-4.4); Immature Granulocyte Absolute 0.05 K/mm3 (0.00-0.031); Immature Granulocyte Percent A 0.5 % (0-0.5); Lymphocytes Absolute Auto 2.13 K/mm3 (0.9-3.2); Lymphocytes Percent Auto 20.9 % (18.3-44.2); Mean Corpuscular HGB Conc 33.3 g/dl (32-36); Mean Corpuscular Hemoglobin 29.7 pg (26-34); Mean Corpuscular Volume 89.2 fl (80-100); Mean Platelet Volume 9.4 fl (7.4-10.4); Monocytes Absolute Auto 0.6 K/mm3 (0.1-0.6); Monocytes Percent Auto 5.9 % (2.6-8.5); Neutrophils Absolute Auto 6.9 K/mm3 (1.3-6.7); Neutrophils Percent Auto 67.6 % (45.5-73.1); Platelet Count Result 211 k/mm3 (150-375); Red Blood Count 4.37 M/mm3 (4.2-5.4); Red Cell Distribution Width 13.6 % (11.5-14.5); White Blood Count 10.2 K/mm3 (4.5-10.0)
[2022-11-06 20:16] LABS: Anion Gap 11 mmol/L (8-16); Blood Urea Nitrogen 22 mg/dL (7-17); Calcium 9.3 mg/dL (8.4-10.2); Carbon Dioxide 24 mmol/L (22-30); Chloride 101 mmol/L (98-107); Estimated CRCL calculation 34 ml/min; Estimated Glomerular Filt Rate 36; Glucose 95 mg/dL (65-110); Potassium 4.3 mmol/L (3.4-5.0); Sodium 136 mmol/L (137-145)
[2022-11-06 20:27] LABS: Prothrombin Time 12.6 Seconds (11.1-14.7)
[2022-11-06 20:28] LABS: Partial Thromboplastin Time 30.2 SECONDS (22.3-36.8)
[2022-11-06 20:46] LABS: D Dimer 0.59 ug/mL (<0.48)
[2022-11-06] MEDS: ENOXAPARIN 100 MG/ML SYRINGE SUB-Q (21:06)
[2022-11-06 21:11] VITALS: BP 152/79; PULSE 79; O2SAT 98
== END 2022-11-06 21:13 | disposition home or self-care (01) ==
PROVIDERS: Emergency Provider Physician Assistant; PCP Emergency Medicine
DX: R22.41 Localized swelling, mass and lump, right lower limb (principal); I12.9 Hypertensive chronic kidney disease with stage 1 through stage 4 chronic kidney disease, or unspecified chronic kidney disease; E11.22 Type 2 diabetes mellitus with diabetic chronic kidney disease; N18.30 Chronic kidney disease, stage 3 unspecified; M10.9 Gout, unspecified; E66.9 Obesity, unspecified; Z68.39 Body mass index [BMI] 39.0-39.9, adult; G47.30 Sleep apnea, unspecified; F41.8 Other specified anxiety disorders; Z86.2 Personal history of diseases of the blood and blood-forming organs and certain disorders involving the immune mechanism; Z87.440 Personal history of urinary (tract) infections; Z96.641 Presence of right artificial hip joint; Z96.653 Presence of artificial knee joint, bilateral; Z90.710 Acquired absence of both cervix and uterus; Z90.722 Acquired absence of ovaries, bilateral; Z98.42 Cataract extraction status, left eye; Z90.79 Acquired absence of other genital organ(s); Z98.41 Cataract extraction status, right eye; Z96.1 Presence of intraocular lens; Z79.84 Long term (current) use of oral hypoglycemic drugs
CPT/HCPCS: 36415; 73502; 73560; 80048; 85025; 85380; 85610; 85730; 96372; 99284; J1650

== ENCOUNTER 2022-11-07 07:08 | Outpatient (CLI) | payer MEDICARE, SELFPAY ==
--- NOTE | ~2022-11-07 | US_ITS ---
EXAMINATION:US venous doppler LE RT INDICATION:Lower extremity swelling and pain TECHNIQUE: Multiple grayscale, color flow and Doppler images of the right lower extremity deep venous systems were obtained and reviewed. COMPARISON: No prior studies for comparison. FINDINGS: The common femoral, superficial femoral and popliteal veins demonstrate normal respiratory variation, augmentation and compressibility. Color flow is also seen within the posterior tibial, pe roneal, greater saphenous and profunda veins. IMPRESSION: 1: No lower extremity deep venous thrombosis. Reviewed, dictated and finalized at location A.
== END 2022-11-07 07:09 | disposition home or self-care (01) ==
PROVIDERS: PCP Emergency Medicine; Visit Provider Emergency Medicine
DX: M79.89 Other specified soft tissue disorders (principal)
CPT/HCPCS: 93971

== ENCOUNTER 2023-02-13 00:49 | Inpatient (IN) | payer MEDICARE, SELFPAY ==
[2023-02-13] VITALS (17 sets, daily range): BP systolic 113–161; BP diastolic 52–86; PULSE 60–98; RESP 15–26; TEMP 36–39.2; O2SAT 92–99; BMI 38.5
--- NOTE | ~2023-02-13 | CT_ITS ---
CT ANGIOGRAM NECK AND HEAD History: CVA. Technique: Serial spiral axial images through the head and neck were obtained during arterial phase I V injection of 100 cc of Omnipaque 350. 3-D postprocessing and MIP images were then reconstructed on the remote workstation. Dose reduction technique was used on this scan by utilizing automated exposur e control and iterative reconstruction technique. The dose-length product (DLP) was 1174.86 mGy-cm. CTA neck findings: Bilateral vertebral arteries are patent. Bilateral common carotid, internal carot id, and external carotid arteries are patent. No large vessel occlusion. No stenosis or aneurysm. The proximal right internal carotid artery demonstrates 0% stenosis relative to the normal distal artery lumen diameter. The proximal left internal carotid artery demonstrates 0% stenosis relative to the n ormal distal artery lumen diameter. CTA head findings: Distal vertebral arteries, basilar artery, and posterior cerebral arteries are pat ent. Distal internal carotid arteries, middle cerebral arteries, and anterior cerebral arteries are p atent. No large vessel occlusion. There is probable aplasia of the A1 segment of the right anterior s houlder arteries, normal variant. There are atherosclerotic calcifications extensively involving the cavernous portions of the distal internal carotid arteries, with probable moderate to high-grade sten osis in the right cavernous internal carotid artery. No aneurysm evident. Impression: No large vessel occlusion. Atherosclerotic calcifications involving the bilateral cavernous portions of the distal internal muñoz tid arteries, with probable moderate to high-grade stenosis in the right cavernous internal carotid a rtery. Reviewed, dictated and finalized at location . Impression: No large vessel occlusion. Atherosclerotic calcifications involving the bilateral cavernous portions of th e distal internal carotid arteries, with probable moderate to high-grade stenos is in the right cavernous internal carotid artery.
--- NOTE | ~2023-02-13 | CT_ITS ---
CT head without contrast Indication: CVA COMPARISON: 05/26/2020 Technique: Serial scans were obtained through the brain without the administration of contrast. Dose reduction technique was used on this scan by utilizing automated exposure control and iterative recon struction technique. The dose-length product (DLP) was 605.33 mGy-cm. Findings: There is no evidence of intracranial hemorrhage, mass lesion, or acute infarct. The ventri cles and subarachnoid spaces are dilated, consistent with minimal atrophy. Low attenuation regions a re seen within the periventricular white matter bilaterally, likely representing changes from chronic microvascular ischemic disease. There is no evidence of edema, mass effect or midline shift. The v isualized paranasal sinuses and mastoid air cells are clear. Impression: No intracranial hemorrhage, mass, or acute infarct. Atrophy and chronic white matter changes, as above. Reviewed, dictated and finalized at location . Impression: No intracranial hemorrhage, mass, or acute infarct. Atrophy and chronic white matter changes, as above.
--- NOTE | ~2023-02-13 | XR_ITS ---
Portable chest x-ray Comparison: 10/26/2020 Clinical History: Weakness Findings: Lungs are clear, without focal consolidation or pleural effusion. Cardiomediastinal silho uette is stable. Bones and soft tissues are unremarkable. Impression: Clear lungs. Reviewed, dictated and finalized at location . Impression: Clear lungs.
--- NOTE | 2023-02-13 01:02 | ECG_ITS ---
Measurements Intervals Miranda Rate: 92 P: 26 [place]: 173 QRS: -21 QRSD: 133 T: 23 QT: 383 QTc: 475 Interpretive Statements SINUS RHYTHM RIGHT BUNDLE BRANCH BLOCK ABNORMAL ECG COMPARED TO ECG 10/26/2020 01:58:06 SINUS RHYTHM NOW PRESENT Electronically Signed On 02-13-2023 7:42:39 CDT by Mino Blackwell D.O.
[2023-02-13 01:04] LABS: Glucose Point of Care 122 mg/dl (65-105)
--- NOTE | 2023-02-13 01:12 | ED.GENADULT ---
HPI - General Adult General Chief complaint: Altered Mental Status Stated complaint: altered mental status Time Seen by Provider: 02/13/23 01:04 History of Present Illness HPI narrative: Patient 77-year-old female who presents the emergency department with chief complaint of altered mental status. Per family between 1-1/2 and 2 hours ago the patient started getting confused and then they noticed that she was shaking all over the patient then was having difficulty answering questions and was not acting her normal self. Upon arrival to triage triage notes there was some facial asymmetry but the patient does report that she is able to move all extremities and reports that she just feels a little off. Related Data Allergies Allergy/AdvReac Type Severity Reaction Status Date / Time sertraline Allergy Unknown Pt does Verified 11/06/22 17:45 not remember amitriptyline AdvReac Unknown Heart race Verified 11/06/22 17:45 fluoxetine AdvReac Unknown Acted Verified 11/06/22 17:45 strange Review of Systems Review of Systems: A 10 system review of systems was completed on the patient and is negative except for what is stated in the HPI. Nursing and ancillary documentation was reviewed. [facility] Past Medical History Medical History Abscess Anemia Chronic kidney disease, stage III (moderate) With baseline creatinine 1.1 Depression with anxiety Essential (primary) hypertension Gastro-esophageal reflux disease without esophagitis Gout Hyperlipidemia Hypertriglyceridemia Metabolic encephalopathy Normal colonoscopy (~2009) Obesity Other sleep apnea will not use cpap Sepsis Type 2 diabetes mellitus UTI (urinary tract infection) Surgical History Surgical History H/O arthroscopy of knee History of bilateral knee replacement Left total knee arthroplasty 1998 with subsequent revision in 2010. Right total knee arthroplasty 1998 with revision in 2007. History of hernia repair (~2006) Incisional hernia repair with mesh History of laparoscopic cholecystectomy (05/08/11) History of right hip replacement (~07/2013) History of tonsillectomy History of total hysterectomy with bilateral salpingo-oophorectomy (BSO) Hysterectomy in 1985, bilateral oophorectomy 2002 Status post cataract extraction of both eyes with insertion of intraocular lens Family History Family History Father , at age 40 Lung cancer Carcinoma of colon Hypertension Mother , at age 73 Ovarian cancer Hypertension Grandparent Diabetes mellitus Carcinoma of colon Family history of malignant neoplasm of breast Grandparent Cerebrovascular accident Other Family history of malignant neoplasm of breast Son Lung cancer Social History Social History Social History: She lives with her of 57 years. She has 1 biologic son and 2 adopted daughters. 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 Primary care physician: Dr. Tony Peralta Code status: Full code Surrogate decision maker: Smoking status: Never smoker Second hand tobacco smoke exposure: No Alcohol intake: never Substance use: never Lack of Transportation: No Lack of Food: Never True Current Housing: I Have Housing Concerned About Future Housing: No Difficulty Paying Gas/Electric Bills: No Difficulty Paying for Meds: No Currently Unemployed: No Education: High School Diploma/GED Difficulty w/ Childcare or Family Care: No Gender identity (if verbalized by the patient): Female Sexual Orientation (if Verbalized by the Patient): Straight or Heterosexual Spiritual care concerns: No Exam Narrati
[2023-02-13 01:22] LABS: Basophils Percent Auto 0.3 % (0.2-1.2); Eosinophils Absolute Auto 0.3 K/mm3 (0-0.3); Eosinophils Percent Auto 2.8 % (0-4.4); Hematocrit 36.8 % (37.0-47.0); Hemoglobin 12.1 g/dL (12.0-15.0); Immature Granulocyte Absolute 0.04 K/mm3 (0.00-0.031); Immature Granulocyte Percent A 0.4 % (0-0.5); Lymphocytes Absolute Auto 0.73 K/mm3 (0.9-3.2); Lymphocytes Percent Auto 8.1 % (18.3-44.2); Mean Corpuscular HGB Conc 32.9 g/dl (32-36); Mean Corpuscular Hemoglobin 30.3 pg (26-34); Mean Platelet Volume 8.9 fl (7.4-10.4); Monocytes Absolute Auto 0.2 K/mm3 (0.1-0.6); Monocytes Percent Auto 2.2 % (2.6-8.5); Neutrophils Absolute Auto 7.7 K/mm3 (1.3-6.7); Neutrophils Percent Auto 86.2 % (45.5-73.1); Platelet Count Result 159 k/mm3 (150-375); Red Cell Distribution Width 14.6 % (11.5-14.5)
[2023-02-13] MEDS: ACETAMINOPHEN 500 MG TABLET 1000 MG PO (01:29)
[2023-02-13] MEDS: SODIUM CHLORIDE 0.9% IV 1,000 ML 999 ML IV CONT (01:30)
[2023-02-13 01:34] LABS: Ethanol < 10 mg/dL (<10)
[2023-02-13 01:35] LABS: Alanine Aminotransferase 17 U/L (6-35); Albumin Level 4.1 g/dL (3.5-5.1); Alkaline Phosphatase 77 U/L (38-126); Anion Gap 12 mmol/L (8-16); Aspartate Amino Transferase 22 U/L (14-36); Bilirubin,Total 0.3 mg/dL (0.2-1.3); Blood Urea Nitrogen 17 mg/dL (7-17); Calcium 8.8 mg/dL (8.4-10.2); Carbon Dioxide 24 mmol/L (22-30); Chloride 104 mmol/L (98-107); Estimated Glomerular Filt Rate 40; Glucose 132 mg/dL (65-110); INR 0.9; Potassium 3.9 mmol/L (3.4-5.0); Prothrombin Time 12.9 Seconds (11.1-14.7); Sodium 140 mmol/L (137-145)
[2023-02-13 01:36] LABS: Partial Thromboplastin Time 28.4 SECONDS (22.3-36.8)
[2023-02-13 01:46] LABS: Troponin I < 0.012 ng/mL (0.000-0.034)
[2023-02-13 01:54] LABS: Lactic Acid Reflex 1.8 mmol/L (0.7-2.0)
[2023-02-13] MEDS: MAGNESIUM SULF 2 GM/WATER 50ML 2 GM/50 ML BAG IVPB (02:02)
[2023-02-13 02:11] LABS: Procalcitonin 0.1 ng/mL
[2023-02-13 02:46] LABS: Appearance Urine Clear (Clear); Bacteria Urine 4+ /hpf; Bilirubin Urine Negative (Negative); Blood Urine Negative (Negative); Color Urine Yellow (Yellow); Glucose Urine UA Negative (Negative); Ketones Urine Negative (Negative); Leukocyte Esterase Ur 3+ LEU/UL (Negative); Nitrate Urine Negative (Negative); Non Pathogenic Casts 0-2; Protein Urine Trace mg/dL (Negative); RBC Urine 0-2 /hpf (0-2); Specific Grav Ur 1.042 (1.001-1.035); Squamous Epithelial Cell Urine None seen /hpf (Few); WBC Clumps Urine Present /HPF; WBC Urine 51-100 /hpf; pH Urine 6.5 (5.0-9.0)
[2023-02-13 02:48] LABS: Amphetamine Screen Urine Negative (Negative); Barbiturate Screen Urine Negative (Negative); Benzodiazepines Screen Urine Positive (Negative); Cannabinoid Screen Urine Negative (Negative); Cocaine Screen Urine Negative (Negative); Methadone Screen Urine Negative (Negative); Opiate Screen Urine Negative (Negative); Phencyclidine Screen Urine Negative (Negative)
[2023-02-13 02:49] LABS: Add Urine Microscopic? YES
[2023-02-13 02:58] LABS: Strep Group A RT-PCR NOT DETECTED (Negative)
[2023-02-13 03:08] LABS: Influenza A QL RT-PCR Negative (Negative); Influenza B QL RT-PCR Negative (Negative); SARS-CoV-2 RNA PCR Positive (Negative)
[2023-02-13 05:08] LABS: Troponin I 0.014 ng/mL (0.000-0.034)
[2023-02-13] MEDS: MAGNESIUM SULF 4 GM/WATER100ML 4 GM/100 ML BAG IVPB (10:06)
--- NOTE | 2023-02-13 11:00 | PM.IMHP ---
H&P: HPI History of Present Illness Date/Time: 02/13/23 1100 Chief Complaint: AMS, severe chills and uncontrolled shaking Narrative: Patient is a 77 year old female with a past medical history of HTN, anxiety, depression, diabetes who presented to the ED with complaints of AMS and chills. Patient was unable to tell me when all of this had started however she stated that she was having severe chills and was unable to stop shaking. She also stated that she has been staying silly things that did make sense. She stated that this happened before and usually relates to UTI. She also stated that she had diarrhea about 3 weeks ago. She claims it is hurts to urinate along with some frequency and urgency. She denies any chest pain, shortness a breath, nausea, vomiting, diarrhea, constipation, hearing changes visual changes, sweats, fevers, swelling. She does feel little tired and fatigued. She does have headaches however nothing lately. She denies being around any sick contacts. She also stated that she was vaccinated x2 without a booster. head CT was performed in the ED which did show no acute abnormality, head CTA showed carotid stenosis. UA did appear infectious white blood cell count 9.0. patient was initiated on ceftriaxone. Currently mental status is stable. COVID test did come back positive in the ED. patient is being admitted to the hospitalist service under observation Review of Systems Review of Systems: All systems reviewed & are unremarkable except as noted in HPI and below PMFSH Past Medical History Medical History Abscess Anemia Chronic kidney disease, stage III (moderate) With baseline creatinine 1.1 Depression with anxiety Essential (primary) hypertension Gastro-esophageal reflux disease without esophagitis Gout Hyperlipidemia Hypertriglyceridemia Metabolic encephalopathy Normal colonoscopy (~2009) Obesity Other sleep apnea will not use cpap Sepsis Type 2 diabetes mellitus UTI (urinary tract infection) Surgical History Surgical History H/O arthroscopy of knee History of bilateral knee replacement Left total knee arthroplasty 1998 with subsequent revision in 2010. Right total knee arthroplasty 1998 with revision in 2007. History of hernia repair (~2006) Incisional hernia repair with mesh History of laparoscopic cholecystectomy (05/08/11) History of right hip replacement (~07/2013) History of tonsillectomy History of total hysterectomy with bilateral salpingo-oophorectomy (BSO) Hysterectomy in 1985, bilateral oophorectomy 2002 Status post cataract extraction of both eyes with insertion of intraocular lens Family History Family History Father , at age 40 Lung cancer Carcinoma of colon Hypertension Mother , at age 73 Ovarian cancer Hypertension Grandparent Diabetes mellitus Carcinoma of colon Family history of malignant neoplasm of breast Grandparent Cerebrovascular accident Other Family history of malignant neoplasm of breast Son Lung cancer Social History Social History Social History: She lives with her of 57 years. She has 1 biologic son and 2 adopted daughters. 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 Primary care physician: Dr. Tony Peralta Code status: Full code Surrogate decision maker: Smoking status: Never smoker Second hand tobacco smoke exposure: No Alcohol intake: never Substance use: never Substance use type: does not use Lack of Transportation: No Lack of Food: Never True Current Housing: I Have Housing Concerned About Future Housing: No Difficulty Paying Gas/Electric Bills: No Difficulty Payi
--- NOTE | 2023-02-13 14:31 | PCCCNOTE ---
On 02/13/23, the student, [Johanne Ulrich ], provided care and completed [facility] documentation on this patient. I have reviewed the student's documentation and agree with the findings.
[2023-02-13] MEDS: METOPROLOL TARTRATE 25 MG TABLET PO (16:29)
[2023-02-13] MEDS: LOSARTAN POTASSIUM 100 MG TABLET PO (16:29)
[2023-02-13] MEDS: TOPIRAMATE 25 MG TABLET 50 MG PO (16:29)
[2023-02-13] MEDS: allopurinoL 300 MG TABLET PO (16:29)
[2023-02-13] MEDS: buPROPion HCL SR (12HR) 100 MG TABCR 200 MG PO (16:29)
[2023-02-13] MEDS: ATORVASTATIN 20 MG TABLET PO (16:30)
[2023-02-13 16:53] LABS: Glucose Point of Care 123 mg/dl (65-105)
[2023-02-13 16:57] LABS: Glucose Point of Care 120 mg/dl (65-105)
--- NOTE | 2023-02-13 19:38 | PC.NURSE ---
Pt is able to answer A&O questions. Pt came in with altered mental status, but it has resolved at this time. Pt denies any pain. Pt not compliant with using call light to get up. Pt has been educated many times throughout the shift about the importance of using call light. Pt had fall 4 months ago. Pt is Covid positive and lethargy is main symptom. Pt compliant with medication and did not require any insulin today. Pt has been monitored for any changes in status.
[2023-02-13] MEDS: traZODone HCL 50 MG TABLET 100 MG PO (21:47)
[2023-02-13 22:33] LABS: Glucose Point of Care 91 mg/dl (65-105)
[2023-02-14 06:00] VITALS: BP 143/49; PULSE 65; RESP 20; TEMP 37.9; O2SAT 97
[2023-02-14] MEDS: HYDROcodone/acetaminophen (*CRX) 5-325 MG TABLET 1 TAB PO (06:07)
[2023-02-14 06:17] LABS: Basophils Absolute Auto 0.1 K/mm3 (0.0-0.1); Basophils Percent Auto 0.7 % (0.2-1.2); Eosinophils Absolute Auto 0.3 K/mm3 (0-0.3); Eosinophils Percent Auto 3.2 % (0-4.4); Hematocrit 34.6 % (37.0-47.0); Hemoglobin 10.8 g/dL (12.0-15.0); Immature Granulocyte Absolute 0.03 K/mm3 (0.00-0.031); Immature Granulocyte Percent A 0.3 % (0-0.5); Lymphocytes Absolute Auto 1.73 K/mm3 (0.9-3.2); Lymphocytes Percent Auto 19.2 % (18.3-44.2); Mean Corpuscular HGB Conc 31.2 g/dl (32-36); Mean Corpuscular Hemoglobin 29.1 pg (26-34); Mean Corpuscular Volume 93.3 fl (80-100); Monocytes Absolute Auto 0.7 K/mm3 (0.1-0.6); Monocytes Percent Auto 7.5 % (2.6-8.5); Neutrophils Absolute Auto 6.2 K/mm3 (1.3-6.7); Neutrophils Percent Auto 69.1 % (45.5-73.1); Platelet Count Result 157 k/mm3 (150-375); Red Blood Count 3.71 M/mm3 (4.2-5.4); Red Cell Distribution Width 14.6 % (11.5-14.5)
[2023-02-14 06:30] LABS: Anion Gap 9 mmol/L (8-16); Blood Urea Nitrogen 16 mg/dL (7-17); Calcium 8.4 mg/dL (8.4-10.2); Carbon Dioxide 22 mmol/L (22-30); Chloride 107 mmol/L (98-107); Estimated CRCL calculation 37 ml/min; Estimated Glomerular Filt Rate 40; Glucose 113 mg/dL (65-110); Potassium 3.7 mmol/L (3.4-5.0); Sodium 138 mmol/L (137-145)
[2023-02-14 08:37] LABS: Glucose Point of Care 112 mg/dl (65-105)
[2023-02-14 11:28] VITALS: PULSE 74
[2023-02-14] MEDS: TOPIRAMATE 25 MG TABLET 50 MG PO ×2 (11:28→18:09)
[2023-02-14] MEDS: METOPROLOL TARTRATE 25 MG TABLET PO (11:28)
[2023-02-14] MEDS: allopurinoL 300 MG TABLET PO (11:28)
[2023-02-14] MEDS: buPROPion HCL SR (12HR) 100 MG TABCR 200 MG PO ×2 (11:29→18:09)
[2023-02-14] MEDS: LOSARTAN POTASSIUM 100 MG TABLET PO (11:29)
[2023-02-14] MEDS: PANTOPRAZOLE 40 MG TABLET PO (11:30)
[2023-02-14] MEDS: ATORVASTATIN 20 MG TABLET PO (11:30)
[2023-02-14] MEDS: CYANOCOBALAMIN 1,000 MCG TABLET 1000 MCG PO (11:30)
[2023-02-14] MEDS: ENOXAPARIN 40 MG/0.4 ML SYRINGE SUB-Q (11:31)
--- NOTE | 2023-02-14 12:11 | PM.IMPN ---
Progress Note: A&P Assessment and Plan (1) COVID-19: Code(s): U07.1 - COVID-19 Status: Acute Assessment and Plan: Asymptomatic, monitor (2) Acute UTI: Code(s): N39.0 - Urinary tract infection, site not specified Status: Acute Assessment and Plan: Urine culture pending, continue Rocephin started 02/13 (3) Acute metabolic encephalopathy: Code(s): G93.41 - Metabolic encephalopathy Status: Acute Assessment and Plan: Likely secondary to UTI with bacteremia, blood cultures preliminary positive for Gram-negative bacilli Rocephin initiated 02/13, dose increased from 1 g to 2 g when blood cultures came back positive 02/14 Continue to follow blood cultures (4) Chronic kidney disease, stage III (moderate): Qualifiers: Chronic kidney disease stage 3 subtype: unspecified whether 3a or 3b Qualified Code(s): N18.30 - Chronic kidney disease, stage 3 unspecified Code(s): N18.30 - Chronic kidney disease, stage 3 unspecified Status: Chronic Assessment and Plan: Appears to be at baseline, monitor (5) Essential (primary) hypertension: Code(s): I10 - Essential (primary) hypertension Status: Chronic Assessment and Plan: Continue home antihypertensives, monitor Blood pressure reviewed 02/14 (6) Diabetes 1.5, managed as type 2: Code(s): E13.9 - Other specified diabetes mellitus without complications Status: Acute Assessment and Plan: Accu-Cheks, sliding scale insulin, check A1c Blood glucose reviewed 02/14 Plan DVT prophylaxis with Lovenox GI prophylaxis not indicated Code status full code Subjective Date/time seen: 02/14/23 12:11 Interval history: 77-year-old female with history of high blood pressure, anxiety, diabetes is presenting with altered mental status and chills and currently being treated for Gram-negative bacilli bacteremia as well as COVID, which she is asymptomatic with. No overnight events noted. No chest pain or shortness of breath. No nausea, vomiting or diarrhea. No fevers or chills. Review of Systems Review of Systems: 12 point review of systems was assessed and was negative except as noted in the HPI Exam Narrative: General: No acute distress, alert and oriented per baseline HEENT: Atraumatic, normocephalic, mucous membranes moist CV: Regular rate and rhythm, S1, S2 Lungs: Clear to auscultation bilaterally, no rales or crackles noted, no wheezes, good air entry Abdomen: Soft, nontender, nondistended Extremities: Normal to inspection Skin: No rashes noted, no lesions or wounds seen Psych: Euthymic, normal affect Objective Data Vital Signs Vital Signs: Vital Signs - 24 hr 02/13/23 16:29 02/13/23 14:00 02/13/23 22:00 Temperature 97.1 F L 97.4 F L Pulse Rate 68 73 60 Respiratory Rate 16 20 Blood Pressure 136/73 144/58 H Pulse Oximetry 97 98 02/14/23 06:00 02/14/23 11:28 Temperature 100.3 F H Pulse Rate 65 74 Respiratory Rate 20 Blood Pressure 143/49 H Pulse Oximetry 97 Intake/Output Intake/Output: Intake & Output 02/11/23 02/12/23 02/13/23 02/14/23 23:59 23:59 23:59 23:59 Intake Total 1460 1000 Output Total 1650 400 Balance -190 600 Meds/Results Medications: Active Medications Generic Name Dose Route Start Last Admin Trade Name Freq PRN Reason Stop Dose Admin Acetaminophen 650 mg 02/13/23 03:32 Acetaminophen 325 Mg Tablet PO Q4H PRN Mild Pain (1-3) or Fever Hydrocodone Bitart/Acetaminophen 1 tab 02/13/23 13:04 02/14/23 06:07 Hydrocodone/Acetaminophen (*Crx) 5-325 Mg Tablet PO 1 tab Q4H PRN Administration Moderate Pain (4-10) Allopurinol 300 mg 02/13/23 14:00 02/14/23 11:28 Allopurinol 300 Mg Tablet PO 300 mg DAILY PITA Administration Alprazolam 0.5 mg 02/13/23 13:03 Alprazolam (*Crx) 0.5 Mg Tablet PO BID PRN anxiety Atorvastati
[2023-02-14 13:28] LABS: Glucose Point of Care 116 mg/dl (65-105)
[2023-02-14 14:00] VITALS: BP 145/60; PULSE 58; RESP 18; TEMP 36.4; O2SAT 97
[2023-02-14] MEDS: cefTRIAXone 2 GM/NS 100 ML 2 GM/100 ML BAG IVPB (18:09)
[2023-02-14 18:11] LABS: Glucose Point of Care 122 mg/dl (65-105)
--- NOTE | 2023-02-14 19:09 | PC.NURSE ---
Pt has had no reports of pain this shift. Pt denies any needs at this time. Pt able to ambulate as stand by assist. Pt will be staying here until thursday due to positive blood cultures for IV antibiotics. Pt has been monitored for any changes in status.
[2023-02-14 20:36] LABS: Glucose Point of Care 115 mg/dl (65-105)
[2023-02-14 22:00] VITALS: BP 149/55; PULSE 61; RESP 18; TEMP 36.1; O2SAT 96
[2023-02-14] MEDS: traZODone HCL 50 MG TABLET 100 MG PO (22:00)
[2023-02-15 06:00] VITALS: BP 169/59; PULSE 59; RESP 18; TEMP 36.1; O2SAT 97
[2023-02-15 08:00] VITALS: O2SAT 97
[2023-02-15 08:18] LABS: Glucose Point of Care 115 mg/dl (65-105)
[2023-02-15] MEDS: buPROPion HCL SR (12HR) 100 MG TABCR 200 MG PO ×2 (09:43→17:19)
[2023-02-15] MEDS: CYANOCOBALAMIN 1,000 MCG TABLET 1000 MCG PO (09:46)
[2023-02-15] MEDS: METOPROLOL TARTRATE 25 MG TABLET PO (09:47)
[2023-02-15] MEDS: PANTOPRAZOLE 40 MG TABLET PO (09:47)
[2023-02-15] MEDS: ATORVASTATIN 20 MG TABLET PO (09:47)
[2023-02-15] MEDS: ENOXAPARIN 40 MG/0.4 ML SYRINGE SUB-Q (09:47)
[2023-02-15] MEDS: allopurinoL 300 MG TABLET PO (09:47)
[2023-02-15] MEDS: LOSARTAN POTASSIUM 100 MG TABLET PO (09:47)
[2023-02-15] MEDS: TOPIRAMATE 25 MG TABLET 50 MG PO ×2 (09:47→17:19)
--- NOTE | 2023-02-15 10:56 | PM.IMPN ---
Progress Note: A&P Assessment and Plan (1) COVID-19: Code(s): U07.1 - COVID-19 Status: Acute Assessment and Plan: Asymptomatic, monitor (2) Acute UTI: Code(s): N39.0 - Urinary tract infection, site not specified Status: Acute Assessment and Plan: Urine culture pending, continue Rocephin started 02/13 (3) Acute metabolic encephalopathy: Code(s): G93.41 - Metabolic encephalopathy Status: Acute Assessment and Plan: Likely secondary to UTI with bacteremia, blood cultures preliminary positive for Gram-negative bacilli Rocephin initiated 02/13, dose increased from 1 g to 2 g when blood cultures came back positive 02/14 Continue to follow blood cultures (4) Chronic kidney disease, stage III (moderate): Qualifiers: Chronic kidney disease stage 3 subtype: unspecified whether 3a or 3b Qualified Code(s): N18.30 - Chronic kidney disease, stage 3 unspecified Code(s): N18.30 - Chronic kidney disease, stage 3 unspecified Status: Chronic Assessment and Plan: Appears to be at baseline, monitor (5) Essential (primary) hypertension: Code(s): I10 - Essential (primary) hypertension Status: Chronic Assessment and Plan: Continue home antihypertensives, monitor Blood pressure reviewed 02/15 (6) Diabetes 1.5, managed as type 2: Code(s): E13.9 - Other specified diabetes mellitus without complications Status: Acute Assessment and Plan: Accu-Cheks, sliding scale insulin, check a1c Blood glucose reviewed 02/15 Plan DVT prophylaxis with Lovenox GI prophylaxis not indicated Code status full code Subjective Date/time seen: 02/15/23 10:56 Interval history: 77-year-old female with history of high blood pressure, anxiety, diabetes is presenting with altered mental status and chills and currently being treated for Gram-negative bacilli bacteremia as well as COVID, which she is asymptomatic with. No overnight events noted. No chest pain or shortness of breath. No nausea, vomiting or diarrhea. No fevers or chills. Review of Systems Review of Systems: 12 point review of systems was assessed and was negative except as noted in the HPI Exam Narrative: General: No acute distress, alert and oriented per baseline HEENT: Atraumatic, normocephalic, mucous membranes moist CV: Regular rate and rhythm, S1, S2 Lungs: Clear to auscultation bilaterally, no rales or crackles noted, no wheezes, good air entry Abdomen: Soft, nontender, nondistended Extremities: Normal to inspection Skin: No rashes noted, no lesions or wounds seen Psych: Euthymic, normal affect Objective Data Vital Signs Vital Signs: Vital Signs - 24 hr 02/14/23 11:28 02/14/23 14:00 02/14/23 22:00 Temperature 97.5 F L 97 F L Pulse Rate 74 58 L 61 Respiratory Rate 18 18 Blood Pressure 145/60 H 149/55 H Pulse Oximetry 97 96 02/15/23 06:00 Temperature 97 F L Pulse Rate 59 L Respiratory Rate 18 Blood Pressure 169/59 H Pulse Oximetry 97 Intake/Output Intake/Output: Intake & Output 02/12/23 02/13/23 02/14/23 02/15/23 23:59 23:59 23:59 23:59 Intake Total 1460 1720 750 Output Total 1650 800 800 Balance -190 920 -50 Meds/Results Medications: Active Medications Generic Name Dose Route Start Last Admin Trade Name Freq PRN Reason Stop Dose Admin Acetaminophen 650 mg 02/13/23 03:32 Acetaminophen 325 Mg Tablet PO Q4H PRN Mild Pain (1-3) or Fever Hydrocodone Bitart/Acetaminophen 1 tab 02/13/23 13:04 02/14/23 06:07 Hydrocodone/Acetaminophen (*Crx) 5-325 Mg Tablet PO 1 tab Q4H PRN Administration Moderate Pain (4-10) Allopurinol 300 mg 02/13/23 14:00 02/15/23 09:47 Allopurinol 300 Mg Tablet PO 300 mg DAILY PITA Administration Alprazolam 0.5 mg 02/13/23 13:03 Alprazolam (*Crx) 0.5 Mg Tablet PO BID PRN anxiety Atorvastatin Calcium
[2023-02-15 11:42] LABS: Basophils Percent Auto 0.6 % (0.2-1.2); Eosinophils Absolute Auto 0.3 K/mm3 (0-0.3); Eosinophils Percent Auto 3.8 % (0-4.4); Hematocrit 34.7 % (37.0-47.0); Hemoglobin 11.2 g/dL (12.0-15.0); Immature Granulocyte Absolute 0.04 K/mm3 (0.00-0.031); Immature Granulocyte Percent A 0.6 % (0-0.5); Lymphocytes Absolute Auto 1.34 K/mm3 (0.9-3.2); Lymphocytes Percent Auto 19.6 % (18.3-44.2); Mean Corpuscular HGB Conc 32.3 g/dl (32-36); Mean Corpuscular Hemoglobin 29.7 pg (26-34); Mean Platelet Volume 9.3 fl (7.4-10.4); Monocytes Absolute Auto 0.6 K/mm3 (0.1-0.6); Monocytes Percent Auto 8.6 % (2.6-8.5); Neutrophils Absolute Auto 4.6 K/mm3 (1.3-6.7); Neutrophils Percent Auto 66.8 % (45.5-73.1); Platelet Count Result 156 k/mm3 (150-375); Red Blood Count 3.77 M/mm3 (4.2-5.4); Red Cell Distribution Width 14.6 % (11.5-14.5); White Blood Count 6.9 K/mm3 (4.5-10.0)
[2023-02-15 12:03] LABS: Alanine Aminotransferase 17 U/L (6-35); Albumin Level 4.1 g/dL (3.5-5.1); Alkaline Phosphatase 73 U/L (38-126); Anion Gap 9 mmol/L (8-16); Aspartate Amino Transferase 23 U/L (14-36); Bilirubin,Total 0.2 mg/dL (0.2-1.3); Blood Urea Nitrogen 15 mg/dL (7-17); CRP 3.1 mg/dL (<1.0); Carbon Dioxide 23 mmol/L (22-30); Chloride 108 mmol/L (98-107); Estimated CRCL calculation 40 ml/min; Estimated Glomerular Filt Rate 43; Glucose 124 mg/dL (65-110); Potassium 3.8 mmol/L (3.4-5.0); Sodium 140 mmol/L (137-145)
[2023-02-15 12:08] LABS: Glucose Point of Care 112 mg/dl (65-105)
[2023-02-15 12:10] LABS: Hemoglobin A1C 6.1 % (<5.7)
[2023-02-15 12:15] LABS: D Dimer 0.77 ug/mL (<0.48)
[2023-02-15 12:16] LABS: Procalcitonin 0.8 ng/mL
[2023-02-15 14:00] VITALS: BP 150/61; PULSE 63; RESP 18; TEMP 36.2; O2SAT 98
[2023-02-15] MEDS: cefTRIAXone 2 GM/NS 100 ML 2 GM/100 ML BAG IVPB (17:18)
[2023-02-15 17:22] LABS: Glucose Point of Care 105 mg/dl (65-105)
[2023-02-15] MEDS: traZODone HCL 50 MG TABLET 100 MG PO (21:00)
[2023-02-15 22:00] VITALS: BP 134/56; PULSE 63; RESP 18; TEMP 36.1; O2SAT 97
[2023-02-15 22:06] LABS: Glucose Point of Care 124 mg/dl (65-105)
[2023-02-16 06:00] VITALS: BP 136/48; PULSE 62; RESP 18; TEMP 35.9; O2SAT 98
[2023-02-16 07:42] LABS: Glucose Point of Care 108 mg/dl (65-105)
[2023-02-16 08:00] VITALS: O2SAT 98
[2023-02-16] MEDS: LOSARTAN POTASSIUM 100 MG TABLET PO (08:44)
[2023-02-16] MEDS: METOPROLOL TARTRATE 25 MG TABLET PO (08:44)
[2023-02-16] MEDS: ATORVASTATIN 20 MG TABLET PO (08:44)
[2023-02-16] MEDS: PANTOPRAZOLE 40 MG TABLET PO (08:44)
[2023-02-16] MEDS: ENOXAPARIN 40 MG/0.4 ML SYRINGE SUB-Q (08:44)
[2023-02-16] MEDS: buPROPion HCL SR (12HR) 100 MG TABCR 200 MG PO ×2 (08:44→16:46)
[2023-02-16] MEDS: allopurinoL 300 MG TABLET PO (08:45)
[2023-02-16] MEDS: TOPIRAMATE 25 MG TABLET 50 MG PO ×2 (08:45→16:46)
[2023-02-16] MEDS: CYANOCOBALAMIN 1,000 MCG TABLET 1000 MCG PO (08:45)
--- NOTE | 2023-02-16 09:49 | PM.IMPN ---
Progress Note: A&P Assessment and Plan (1) Bacteremia: Code(s): R78.81 - Bacteremia Status: Acute Assessment and Plan: Transient bacteremia from UTI, ecoli + in 1/4 cx, all other cx NGTD, anticipate d/c tomorrow on augmentin if cultures remain negative (2) COVID-19: Code(s): U07.1 - COVID-19 Status: Acute Assessment and Plan: Asymptomatic, monitor (3) Acute UTI: Code(s): N39.0 - Urinary tract infection, site not specified Status: Acute Assessment and Plan: Urine culture pending, continue Rocephin started 02/13 (4) Acute metabolic encephalopathy: Code(s): G93.41 - Metabolic encephalopathy Status: Acute Assessment and Plan: Likely secondary to UTI with bacteremia, blood cultures preliminary positive for Gram-negative bacilli Rocephin initiated 02/13, dose increased from 1 g to 2 g when blood cultures came back positive 02/14 Continue to follow blood cultures (5) Chronic kidney disease, stage III (moderate): Qualifiers: Chronic kidney disease stage 3 subtype: unspecified whether 3a or 3b Qualified Code(s): N18.30 - Chronic kidney disease, stage 3 unspecified Code(s): N18.30 - Chronic kidney disease, stage 3 unspecified Status: Chronic Assessment and Plan: Appears to be at baseline, monitor (6) Essential (primary) hypertension: Code(s): I10 - Essential (primary) hypertension Status: Chronic Assessment and Plan: Continue home antihypertensives, monitor Blood pressure reviewed 02/16 (7) Diabetes 1.5, managed as type 2: Code(s): E13.9 - Other specified diabetes mellitus without complications Status: Acute Assessment and Plan: Accu-Cheks, sliding scale insulin, check a1c Blood glucose reviewed 02/16 Plan DVT prophylaxis with Lovenox GI prophylaxis not indicated Code status full code Subjective Date/time seen: 02/16/23 09:49 Interval history: 77-year-old female with history of high blood pressure, anxiety, diabetes is presenting with altered mental status and chills and currently being treated for Gram-negative bacilli bacteremia as well as COVID, which she is asymptomatic with. No overnight events noted. No chest pain or shortness of breath. No nausea, vomiting or diarrhea. No fevers or chills. Review of Systems Review of Systems: 12 point review of systems was assessed and was negative except as noted in the HPI Exam Narrative: General: No acute distress, alert and oriented per baseline HEENT: Atraumatic, normocephalic, mucous membranes moist CV: Regular rate and rhythm, S1, S2 Lungs: Clear to auscultation bilaterally, no rales or crackles noted, no wheezes, good air entry Abdomen: Soft, nontender, nondistended Extremities: Normal to inspection Skin: No rashes noted, no lesions or wounds seen Psych: Euthymic, normal affect Objective Data Vital Signs Vital Signs: Vital Signs - 24 hr 02/15/23 14:00 02/15/23 22:00 02/15/23 20:00 Temperature 97.2 F L 96.9 F L Pulse Rate 63 63 Respiratory Rate 18 18 Blood Pressure 150/61 H 134/56 L Pulse Oximetry 98 97 Oxygen Delivery Room Air 02/16/23 06:00 02/16/23 08:00 Temperature 96.7 F L Pulse Rate 62 Respiratory Rate 18 Blood Pressure 136/48 L Pulse Oximetry 98 98 Oxygen Delivery Room Air Intake/Output Intake/Output: Intake & Output 02/13/23 02/14/23 02/15/23 02/16/23 23:59 23:59 23:59 23:59 Intake Total 1460 1820 1430 600 Output Total 9515 349 3196 200 Balance -190 1020 -20 400 Meds/Results Medications: Active Medications Generic Name Dose Route Start Last Admin Trade Name Freq PRN Reason Stop Dose Admin Acetaminophen 650 mg 02/13/23 03:32 Acetaminophen 325 Mg Tablet PO Q4H PRN Mild Pain (1-3) or Fever Hydrocodone Bitart/Acetaminophen 1 tab 02/13/23 13:04 02/14/23 06:07 Hydrocodone/Acetaminophen (*Crx)
[2023-02-16 10:17] LABS: Basophils Absolute Auto 0.1 K/mm3 (0.0-0.1); Basophils Percent Auto 0.6 % (0.2-1.2); Eosinophils Absolute Auto 0.3 K/mm3 (0-0.3); Eosinophils Percent Auto 3.4 % (0-4.4); Hematocrit 34.8 % (37.0-47.0); Hemoglobin 11.1 g/dL (12.0-15.0); Immature Granulocyte Absolute 0.04 K/mm3 (0.00-0.031); Immature Granulocyte Percent A 0.5 % (0-0.5); Lymphocytes Absolute Auto 1.33 K/mm3 (0.9-3.2); Lymphocytes Percent Auto 16.9 % (18.3-44.2); Mean Corpuscular HGB Conc 31.9 g/dl (32-36); Mean Corpuscular Hemoglobin 29.8 pg (26-34); Mean Corpuscular Volume 93.3 fl (80-100); Mean Platelet Volume 8.9 fl (7.4-10.4); Monocytes Absolute Auto 0.5 K/mm3 (0.1-0.6); Monocytes Percent Auto 5.7 % (2.6-8.5); Neutrophils Absolute Auto 5.7 K/mm3 (1.3-6.7); Neutrophils Percent Auto 72.9 % (45.5-73.1); Platelet Count Result 151 k/mm3 (150-375); Red Blood Count 3.73 M/mm3 (4.2-5.4); Red Cell Distribution Width 14.2 % (11.5-14.5); White Blood Count 7.9 K/mm3 (4.5-10.0)
[2023-02-16 10:28] LABS: Alanine Aminotransferase 16 U/L (6-35); Albumin Level 4.1 g/dL (3.5-5.1); Alkaline Phosphatase 51 U/L (38-126); Anion Gap 7 mmol/L (8-16); Aspartate Amino Transferase 22 U/L (14-36); Bilirubin,Total 0.4 mg/dL (0.2-1.3); Blood Urea Nitrogen 16 mg/dL (7-17); Carbon Dioxide 22 mmol/L (22-30); Chloride 105 mmol/L (98-107); Estimated CRCL calculation 40 ml/min; Estimated Glomerular Filt Rate 43; Glucose 179 mg/dL (65-110); Potassium 3.9 mmol/L (3.4-5.0); Sodium 134 mmol/L (137-145)
[2023-02-16 11:26] LABS: Glucose Point of Care 148 mg/dl (65-105)
[2023-02-16 14:00] VITALS: BP 177/61; PULSE 64; RESP 18; TEMP 36; O2SAT 99
[2023-02-16] MEDS: cefTRIAXone 2 GM/NS 100 ML 2 GM/100 ML BAG IVPB (14:00)
[2023-02-16 16:44] LABS: Glucose Point of Care 102 mg/dl (65-105)
[2023-02-16 20:00] VITALS: PULSE 64; RESP 18; O2SAT 99
[2023-02-16] MEDS: traZODone HCL 50 MG TABLET 100 MG PO (21:33)
[2023-02-16 22:00] VITALS: BP 161/60; PULSE 58; RESP 20; TEMP 36.4; O2SAT 98
[2023-02-16 22:36] LABS: Glucose Point of Care 114 mg/dl (65-105)
[2023-02-17] MEDS: AMOXICILLIN/CLAVULANATE K 875-125 MG TAB 1 TABLET PO ×2 (05:53→13:39)
[2023-02-17 06:00] VITALS: BP 153/71; PULSE 59; RESP 18; TEMP 35.7; O2SAT 95
[2023-02-17 07:53] LABS: Glucose Point of Care 115 mg/dl (65-105)
[2023-02-17 08:22] VITALS: PULSE 64
[2023-02-17] MEDS: CYANOCOBALAMIN 1,000 MCG TABLET 1000 MCG PO (08:22)
[2023-02-17] MEDS: ATORVASTATIN 20 MG TABLET PO (08:22)
[2023-02-17] MEDS: METOPROLOL TARTRATE 25 MG TABLET PO (08:22)
[2023-02-17] MEDS: buPROPion HCL SR (12HR) 100 MG TABCR 200 MG PO (08:22)
[2023-02-17] MEDS: PANTOPRAZOLE 40 MG TABLET PO (08:22)
[2023-02-17] MEDS: LOSARTAN POTASSIUM 100 MG TABLET PO (08:23)
[2023-02-17] MEDS: ENOXAPARIN 40 MG/0.4 ML SYRINGE SUB-Q (08:23)
[2023-02-17] MEDS: allopurinoL 300 MG TABLET PO (08:23)
[2023-02-17] MEDS: TOPIRAMATE 25 MG TABLET 50 MG PO (08:23)
[2023-02-17 11:49] LABS: Glucose Point of Care 139 mg/dl (65-105)
--- NOTE | 2023-02-17 12:47 | PM.DS ---
DS: Admitting Diagnosis Discharge Date 02/17/23 Admitting Diagnosis ams DS: Discharge Diagnosis Discharge Diagnosis (1) Bacteremia: Code(s): R78.81 - Bacteremia Status: Acute Assessment and Plan: Transient bacteremia from UTI, ecoli + in 1/4 cx, all other cx NGTD, anticipate d/c tomorrow on augmentin if cultures remain negative (2) COVID-19: Code(s): U07.1 - COVID-19 Status: Acute Assessment and Plan: Asymptomatic, monitor (3) Acute UTI: Code(s): N39.0 - Urinary tract infection, site not specified Status: Acute Assessment and Plan: Urine culture pending, continue Rocephin started 02/13 (4) Acute metabolic encephalopathy: Code(s): G93.41 - Metabolic encephalopathy Status: Acute Assessment and Plan: Likely secondary to UTI with bacteremia, blood cultures preliminary positive for Gram-negative bacilli Rocephin initiated 02/13, dose increased from 1 g to 2 g when blood cultures came back positive 02/14 Continue to follow blood cultures (5) Chronic kidney disease, stage III (moderate): Qualifiers: Chronic kidney disease stage 3 subtype: unspecified whether 3a or 3b Qualified Code(s): N18.30 - Chronic kidney disease, stage 3 unspecified Code(s): N18.30 - Chronic kidney disease, stage 3 unspecified Status: Chronic Assessment and Plan: Appears to be at baseline, monitor (6) Essential (primary) hypertension: Code(s): I10 - Essential (primary) hypertension Status: Chronic Assessment and Plan: Continue home antihypertensives, monitor Blood pressure reviewed 02/16 (7) Diabetes 1.5, managed as type 2: Code(s): E13.9 - Other specified diabetes mellitus without complications Status: Acute Assessment and Plan: Accu-Cheks, sliding scale insulin, check a1c Blood glucose reviewed 02/16 Plan DVT prophylaxis with Lovenox GI prophylaxis not indicated Code status full code DS: Summary Hospital Course Hospital Course: 77-year-old female with history of high blood pressure, anxiety, diabetes is presenting with altered mental status and chills and currently being treated for Gram-negative bacilli bacteremia as well as COVID, which she is asymptomatic with. Likely secondary to UTI with bacteremia, blood cultures preliminary positive for Gram-negative bacilli Rocephin initiated 02/13, dose increased from 1 g to 2 g when blood cultures came back positive 02/14 Replete blood cultures negative growth to date 02/17 Transient bacteremia from UTI, ecoli + in 07/23 cx, all other cx NGTD, discharged on Augmentin to complete a 14 day course, end date 02/25. Please see above and [facility] for details. Time Spent with Patient Time attestation: Total time spent providing and/or coordinating discharge services: Exam Narrative: General: No acute distress, alert and oriented per baseline HEENT: Atraumatic, normocephalic, mucous membranes moist CV: Regular rate and rhythm, S1, S2 Lungs: Clear to auscultation bilaterally, no rales or crackles noted, no wheezes, good air entry Abdomen: Soft, nontender, nondistended Extremities: Normal to inspection Skin: No rashes noted, no lesions or wounds seen Psych: Euthymic, normal affect DS: Data Data Completed and Pending Labs on day of discharge: Labs from last 24 hours 02/17/23 02/17/23 02/16/23 11:41 07:49 21:14 POC Capillary Glucose 139 H 115 H 114 H 02/16/23 16:40 POC Capillary Glucose 102 Preliminary micro results at discharge 02/13/23 02:51 Blood Culture - Preliminary Blood Escherichia Coli 02/15/23 11:33 Blood Culture - Preliminary Blood 02/15/23 11:31 Blood Culture - Preliminary Blood 02/13/23 02:51 Blood Culture - Preliminary Blood Discharge Plan Discharge Attending physician on discharge: Nubia Mir Discharging Clinician: Nubia Mir Patient Dispo
== END 2023-02-17 15:11 | disposition home or self-care (01) | DRG 689 ==
LOC: ANHED 03:31 → ANH3MEDSUR 05:41
PROVIDERS: Admitting Provider Internal Medicine; Emergency Provider Emergency Medicine; PCP Emergency Medicine; Visit Provider Student in an Organized Health Care Education/Training Program
DX: N39.0 Urinary tract infection, site not specified (principal); G93.41 Metabolic encephalopathy; U07.1 COVID-19; R78.81 Bacteremia; I12.9 Hypertensive chronic kidney disease with stage 1 through stage 4 chronic kidney disease, or unspecified chronic kidney disease; N18.30 Chronic kidney disease, stage 3 unspecified; E13.22 Other specified diabetes mellitus with diabetic chronic kidney disease; E78.5 Hyperlipidemia, unspecified; E78.1 Pure hyperglyceridemia; E66.9 Obesity, unspecified; I65.21 Occlusion and stenosis of right carotid artery; G47.30 Sleep apnea, unspecified; K21.9 Gastro-esophageal reflux disease without esophagitis; M10.9 Gout, unspecified; F41.9 Anxiety disorder, unspecified; B96.20 Unspecified Escherichia coli [E. coli] as the cause of diseases classified elsewhere; F32.A Depression, unspecified; Z96.653 Presence of artificial knee joint, bilateral; Z96.641 Presence of right artificial hip joint; Z80.0 Family history of malignant neoplasm of digestive organs
CPT/HCPCS: 36415; 70450; 70496; 70498; 71045; 80048; 80053; 80307; 81001; 82948; 83036; 83605; 83735; 84145; 84484; 85025; 85380; 85610; 85730; 86140; 87040; 87077; 87086; 87088; 87186; 87636; 87651; 93005; 96361; 96365; 96367; 96372; 96376; 99285; A9270; G0378; J0696; J1650; J3475; J7030; Q9967

== ENCOUNTER → 2023-03-06 13:32 | Outpatient (CLI) | payer MEDICARE, SELFPAY ==
--- NOTE | ~2023-03-06 | XR_ITS ---
EXAMINATION: XR ribs LT 2V w CXR 2V INDICATION: Left chest pain TECHNIQUE: PA and lateral views of the chest and 3 views of the left ribs were obtained. COMPARISON: 02/13/2023, 10/26/2020 FINDINGS: The lungs are free of acute opacities. No pleural effusion or pneumothorax. The cardiomedia stinal silhouette is normal. There is moderate thoracic spondylosis. There is an age-indeterminate co mpression fracture of T11 with 30% loss of anterior vertebral body height. No displaced rib fracture is identified. Surgical clips in the right upper quadrant are likely from prior cholecystectomy. IMPRESSION: 1. No acute cardiopulmonary abnormality or evidence of displaced rib fracture. 2. Age indeterminate T11 compression fracture with 30% loss of anterior vertebral body height loss. Reviewed, dictated and finalized at location B. IMPRESSION: 1. No acute cardiopulmonary abnormality or evidence of displaced rib fracture. 2. Age indeterminate T11 compression fracture with 30% loss of anterior vertebr al body height loss.
== END ==
PROVIDERS: PCP Physician Assistant; Visit Provider Physician Assistant
DX: N64.4 Mastodynia (principal); R07.89 Other chest pain
CPT/HCPCS: 71046; 71100

== ENCOUNTER 2023-03-17 11:19 | Emergency (ER) | payer MEDICARE, SELFPAY ==
[2023-03-17] VITALS (8 sets, daily range): BP systolic 134–184; BP diastolic 55–72; PULSE 72–97; RESP 15–20; TEMP 37.1–37.7; O2SAT 96–99
--- NOTE | ~2023-03-17 | XR_ITS ---
XR chest 2V DATE: 03/17/2023 11:50 INDICATION: Chest pain, chills, weakness TECHNIQUE: PA and lateral views COMPARISON: 03/06/2023 PA and lateral chest FINDINGS: Mild cardiomegaly. Aortic calcification and mild unfolding. No hilar or mediastinal enlarge ment. Moderate bilateral hyperinflation. No pulmonary infiltrate or consolidation, pleural effusion o r pulmonary vascular congestion or pneumothorax is detected. Mild thoracic dextroscoliosis. Again noted is mild compression fracture deformity of T11. Osteopenia. IMPRESSION: Mild cardiomegaly Aortic atherosclerosis Moderate hyperinflation; no active pulmonary disease Reviewed, dictated and finalized at location L.
--- NOTE | 2023-03-17 11:24 | ECG_ITS ---
Measurements Intervals [place] Rate: 92 P: 31 TN: 188 QRS: -12 QRSD: 133 T: 8 QT: 367 QTc: 454 Interpretive Statements SINUS RHYTHM RIGHT BUNDLE BRANCH BLOCK [120+ ms QRS DURATION, UPRIGHT V1, 40+ ms S IN I/aVL/V4/V5/V6] ABNORMAL ECG COMPARED TO ECG 02/13/2023 01:29:43 NO SIGNIFICANT CHANGES Electronically Signed On 03-17-2023 12:20:27 CDT by Jesús Talbert M.D.
[2023-03-17 13:11] LABS: Basophils Percent Auto 0.2 % (0.2-1.2); Eosinophils Absolute Auto 0.1 K/mm3 (0-0.3); Hemoglobin 11.3 g/dL (12.0-15.0); Immature Granulocyte Absolute 0.05 K/mm3 (0.00-0.031); Immature Granulocyte Percent A 0.4 % (0-0.5); Lymphocytes Absolute Auto 0.43 K/mm3 (0.9-3.2); Lymphocytes Percent Auto 3.5 % (18.3-44.2); Mean Corpuscular HGB Conc 32.3 g/dl (32-36); Mean Corpuscular Hemoglobin 30.1 pg (26-34); Mean Corpuscular Volume 93.1 fl (80-100); Mean Platelet Volume 9.2 fl (7.4-10.4); Monocytes Absolute Auto 0.7 K/mm3 (0.1-0.6); Monocytes Percent Auto 5.3 % (2.6-8.5); Neutrophils Percent Auto 89.6 % (45.5-73.1); Platelet Count Result 164 k/mm3 (150-375); Red Blood Count 3.76 M/mm3 (4.2-5.4); Red Cell Distribution Width 14.5 % (11.5-14.5); White Blood Count 12.3 K/mm3 (4.5-10.0)
[2023-03-17 13:21] LABS: Alanine Aminotransferase 17 U/L (6-35); Albumin Level 4.1 g/dL (3.5-5.1); Alkaline Phosphatase 70 U/L (38-126); Anion Gap 11 mmol/L (8-16); Aspartate Amino Transferase 21 U/L (14-36); Bilirubin,Total 0.5 mg/dL (0.2-1.3); Blood Urea Nitrogen 16 mg/dL (7-17); Calcium 8.9 mg/dL (8.4-10.2); Carbon Dioxide 20 mmol/L (22-30); Chloride 106 mmol/L (98-107); Estimated CRCL calculation 37 ml/min; Estimated Glomerular Filt Rate 43; Glucose 145 mg/dL (65-110); Lipase 76 U/L (23-300); Potassium 4.4 mmol/L (3.4-5.0); Sodium 137 mmol/L (137-145)
[2023-03-17 13:22] LABS: Prothrombin Time 13.6 Seconds (11.1-14.7)
[2023-03-17 13:23] LABS: Partial Thromboplastin Time 26.5 SECONDS (22.3-36.8)
[2023-03-17 13:33] LABS: Troponin I < 0.012 ng/mL (0.000-0.034)
[2023-03-17 15:22] LABS: Troponin I < 0.012 ng/mL (0.000-0.034)
--- NOTE | 2023-03-17 17:06 | ED.GENADULT ---
HPI - General Adult General Chief complaint: Urogenital-Female Stated complaint: chills Time Seen by Provider: 03/17/23 16:54 Source: patient Limitations: no limitations History of Present Illness HPI narrative: Patient presents to the emergency department as a 77-year-old female complaining of chills for the past approximately 3 days with associated urinary urgency and urinary frequency. Patient denies dysuria. Patient notes that this feels similar to her history of urinary tract infections. Patient denies any recent antibiotic use or recent hospitalizations. Patient denies nausea, vomiting, abdominal pain, diarrhea, rash, recent injuries, recent illness, cough, headache, sore throat, rhinorrhea, shortness of breath, numbness, weakness. Patient has not noticed a fever at home but has not checked her temperature. Patient admits to intermittent chest pain over the same duration without discomfort at this time, notes that the chest discomfort is diffuse, nonradiating, is an oscillating wearing and not are making it go away. Denies sick contacts. Related Data Home Medications Medication Instructions Recorded Confirmed allopurinol 300 mg tablet 300 mg PO DAILY 02/13/23 03/06/23 atorvastatin 20 mg tablet 20 mg PO DAILY 02/13/23 03/06/23 bupropion HCl 200 mg tablet,12 hr 200 mg PO BID 02/13/23 03/06/23 sustained-release metoprolol tartrate 25 mg tablet 25 mg PO DAILY 02/13/23 03/06/23 Allergies Allergy/AdvReac Type Severity Reaction Status Date / Time sertraline Allergy Unknown Pt does Verified 03/06/23 13:08 not remember amitriptyline AdvReac Unknown Heart race Verified 03/06/23 13:08 fluoxetine AdvReac Unknown Acted Verified 03/06/23 13:08 strange Review of Systems Review of Systems: A 10 system review of systems was completed on the patient and is negative except for what is stated in the HPI. Nursing and ancillary documentation was reviewed. [facility] Past Medical History Medical History Abscess Anemia Chronic kidney disease, stage III (moderate) With baseline creatinine 1.1 Depression with anxiety Essential (primary) hypertension Gastro-esophageal reflux disease without esophagitis Gout Hyperlipidemia Hypertriglyceridemia Metabolic encephalopathy Normal colonoscopy (~2009) Obesity Other sleep apnea will not use cpap Sepsis Type 2 diabetes mellitus UTI (urinary tract infection) Surgical History Surgical History H/O arthroscopy of knee History of bilateral knee replacement Left total knee arthroplasty 1998 with subsequent revision in 2010. Right total knee arthroplasty 1998 with revision in 2007. History of hernia repair (~2006) Incisional hernia repair with mesh History of laparoscopic cholecystectomy (05/08/11) History of right hip replacement (~07/2013) History of tonsillectomy History of total hysterectomy with bilateral salpingo-oophorectomy (BSO) Hysterectomy in 1985, bilateral oophorectomy 2002 Status post cataract extraction of both eyes with insertion of intraocular lens Family History Family History Father , at age 40 Lung cancer Carcinoma of colon Hypertension Mother , at age 73 Ovarian cancer Hypertension Grandparent Diabetes mellitus Carcinoma of colon Family history of malignant neoplasm of breast Grandparent Cerebrovascular accident Other Family history of malignant neoplasm of breast Son Lung cancer Social History Social History Social History: She lives with her of 57 years. She has 1 biologic son and 2 adopted daughters. 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 Primary care physician: Dr. Tony Peralta Code status:
[2023-03-17 17:21] LABS: Magnesium 1.4 mg/dL (1.6-2.3)
[2023-03-17 17:47] LABS: Influenza A QL RT-PCR Negative (Negative); Influenza B QL RT-PCR Negative (Negative); RSV RNA, RT-PCR Negative (Negative); SARS-CoV-2 RNA PCR Positive (Negative)
[2023-03-17 19:03] LABS: Appearance Urine Cloudy (Clear); Bacteria Urine 4+ /hpf; Bilirubin Urine Negative (Negative); Blood Urine Negative (Negative); Color Urine Yellow (Yellow); Glucose Urine UA Negative (Negative); Ketones Urine Negative (Negative); Leukocyte Esterase Ur 3+ LEU/UL (Negative); Need Manual Microscopic Reviewed; Nitrate Urine Positive (Negative); Protein Urine Trace mg/dL (Negative); RBC Urine 0-2 /hpf (0-2); Specific Grav Ur 1.015 (1.001-1.035); Squamous Epithelial Cell Urine None seen /hpf (Few); WBC Urine >100 /hpf; pH Urine 6.5 (5.0-9.0)
[2023-03-17 19:05] LABS: Add Urine Microscopic? YES
[2023-03-17] MEDS: CEPHALEXIN 500 MG CAPSULE PO (19:46)
[2023-03-17] MEDS: MAGNESIUM OXIDE 400 MG TABLET PO (20:35)
== END 2023-03-17 20:41 | disposition home or self-care (01) ==
PROVIDERS: General Practice; Emergency Provider Student in an Organized Health Care Education/Training Program; PCP Physician Assistant
DX: N39.0 Urinary tract infection, site not specified (principal); U07.1 COVID-19; E83.42 Hypomagnesemia; E11.22 Type 2 diabetes mellitus with diabetic chronic kidney disease; I12.9 Hypertensive chronic kidney disease with stage 1 through stage 4 chronic kidney disease, or unspecified chronic kidney disease; N18.30 Chronic kidney disease, stage 3 unspecified; E78.5 Hyperlipidemia, unspecified; E78.1 Pure hyperglyceridemia; K21.9 Gastro-esophageal reflux disease without esophagitis; M10.9 Gout, unspecified; G47.39 Other sleep apnea; E66.9 Obesity, unspecified; Z68.35 Body mass index [BMI] 35.0-35.9, adult; F41.8 Other specified anxiety disorders; Z96.653 Presence of artificial knee joint, bilateral; Z96.641 Presence of right artificial hip joint; Z90.49 Acquired absence of other specified parts of digestive tract; Z90.710 Acquired absence of both cervix and uterus; Z98.42 Cataract extraction status, left eye; Z98.41 Cataract extraction status, right eye; Z96.1 Presence of intraocular lens; I45.10 Unspecified right bundle-branch block; Z79.84 Long term (current) use of oral hypoglycemic drugs
CPT/HCPCS: 36415; 71046; 80053; 81001; 83690; 83735; 84484; 85025; 85610; 85730; 87077; 87086; 87186; 87637; 93005; 99284; A9270

== ENCOUNTER 2023-04-03 12:47 | Outpatient (CLI) | payer MEDICARE, SELFPAY ==
--- NOTE | ~2023-04-03 | MMUS_ITS ---
EXAMINATION: MM diagnostic kristina LT w mehran, US breast LT limited HISTORY: Breast injury and pain from fall in November 2022 after October 27, 2022 screening mammogram.. TECHNIQUE: Full field and spot ML, MLO and CC 3-D tomosynthesis images of left breast were performed and synthetic 2-D images were generated. CAD analysis was submitted and interpreted. High resolution upper outer and lower-outer quadrants breast ultrasound was performed. COMPARISON: October 27, 2022 bilateral screening mammogram BREAST PARENCHYMAL COMPOSITION: There are scattered areas of fibroglandular density. FINDINGS: MAMMOGRAPHIC FINDINGS: No suspicious mass or architectural distortion, malignant calcification, skin thickening or retractio n or significant new or developing density is detected. ULTRASOUND: No suspicious mass or shadowing of the upper outer or lower outer quadrants of the left breast is det ected. No cyst is identified. IMPRESSION: 1. No mammographic or sonographic evidence of malignancy 2. Routine annual mammographic screening is recommended BI-RADS Category 1: Negative Reviewed, dictated and finalized at location A. IMPRESSION: 1. No mammographic or sonographic evidence of malignancy 2. Routine annual mammographic screening is recommended BI-RADS Category 1: Negative
== END 2023-04-03 12:48 | disposition home or self-care (01) ==
LOC: ANHIMG 12:48
PROVIDERS: PCP Physician Assistant; Visit Provider Physician Assistant
DX: N64.4 Mastodynia (principal)
CPT/HCPCS: 76642; 77061; 77065; G0279

== ENCOUNTER 2023-12-04 14:15 | Outpatient (CLI) | payer MEDICARE, SELFPAY ==
[2023-12-04 18:50] LABS: Basophils Absolute Auto 0.1 K/mm3 (0.0-0.1); Basophils Percent Auto 0.7 % (0.2-1.2); Eosinophils Absolute Auto 0.5 K/mm3 (0-0.3); Eosinophils Percent Auto 6.1 % (0-4.4); Hematocrit 37.1 % (37.0-47.0); Hemoglobin 11.9 g/dL (12.0-15.0); Immature Granulocyte Absolute 0.03 K/mm3 (0.00-0.031); Immature Granulocyte Percent A 0.4 % (0-0.5); Lymphocytes Absolute Auto 1.78 K/mm3 (0.9-3.2); Lymphocytes Percent Auto 21.7 % (18.3-44.2); Mean Corpuscular HGB Conc 32.1 g/dl (32-36); Mean Corpuscular Hemoglobin 29.3 pg (26-34); Mean Corpuscular Volume 91.4 fl (80-100); Mean Platelet Volume 9.3 fl (7.4-10.4); Monocytes Absolute Auto 0.5 K/mm3 (0.1-0.6); Monocytes Percent Auto 6.2 % (2.6-8.5); Neutrophils Absolute Auto 5.3 K/mm3 (1.3-6.7); Neutrophils Percent Auto 64.9 % (45.5-73.1); Platelet Count Result 207 k/mm3 (150-375); Red Blood Count 4.06 M/mm3 (4.2-5.4); Red Cell Distribution Width 13.9 % (11.5-14.5); White Blood Count 8.2 K/mm3 (4.5-10.0)
[2023-12-04 19:42] LABS: Alanine Aminotransferase 17 U/L (6-35); Albumin Level 4.5 g/dL (3.5-5.1); Alkaline Phosphatase 76 U/L (38-126); Anion Gap 9 mmol/L (4-12); Aspartate Amino Transferase 27 U/L (14-36); Bilirubin,Total 0.4 mg/dL (0.2-1.3); Blood Urea Nitrogen 28 mg/dL (7-17); Calcium 9.7 mg/dL (8.4-10.2); Carbon Dioxide 26 mmol/L (22-30); Chloride 102 mmol/L (98-107); Cholesterol 163 mg/dL (0-200); Estimated Glomerular Filt Rate 31; Glucose 102 mg/dL (65-110); HDL Direct 43 mg/dL; Magnesium 2.1 mg/dL (1.6-2.3); Potassium 4.8 mmol/L (3.4-5.0); Sodium 137 mmol/L (137-145); Triglycerides 139 mg/dL (<150); Uric Acid 5.2 mg/dL (2.5-7.5)
[2023-12-04 19:53] LABS: LDL Cholesterol Direct 83 mg/dL
[2023-12-04 20:00] LABS: Hemoglobin A1C 5.8 % (<5.7)
[2023-12-04 20:25] LABS: Creatinine Urine 64.5 mg/dL
[2023-12-04 20:30] LABS: MALB Creatinine Ratio 47.8 mg/g (0-30); Microalbumin Urine Random 30.8 mg/L (0-16.7)
== END 2023-12-04 14:16 | disposition home or self-care (01) ==
LOC: ANHGOSHLAB 14:17
PROVIDERS: PCP Family Medicine; Visit Provider Family Medicine
DX: D64.9 Anemia, unspecified (principal); E11.22 Type 2 diabetes mellitus with diabetic chronic kidney disease; E83.42 Hypomagnesemia; M10.9 Gout, unspecified; N18.32 Chronic kidney disease, stage 3b; Z79.899 Other long term (current) drug therapy
CPT/HCPCS: 36415; 80053; 80061; 82043; 82607; 82728; 83036; 83735; 84550; 85025

== ENCOUNTER 2024-05-05 12:54 | Outpatient (CLI) | payer MEDICARE, SELFPAY ==
[2024-05-05 19:01] LABS: Basophils Absolute Auto 0.1 K/mm3 (0.0-0.1); Basophils Percent Auto 0.7 % (0.2-1.2); Eosinophils Absolute Auto 0.4 K/mm3 (0-0.3); Eosinophils Percent Auto 3.8 % (0-4.4); Hematocrit 38.2 % (37.0-47.0); Hemoglobin 12.3 g/dL (12.0-15.0); Immature Granulocyte Absolute 0.04 K/mm3 (0.00-0.031); Immature Granulocyte Percent A 0.4 % (0-0.5); Lymphocytes Absolute Auto 1.23 K/mm3 (0.9-3.2); Lymphocytes Percent Auto 11.3 % (18.3-44.2); Mean Corpuscular HGB Conc 32.2 g/dl (32-36); Mean Corpuscular Hemoglobin 29.7 pg (26-34); Mean Corpuscular Volume 92.3 fl (80-100); Mean Platelet Volume 9.9 fl (7.4-10.4); Monocytes Absolute Auto 0.6 K/mm3 (0.1-0.6); Monocytes Percent Auto 5.4 % (2.6-8.5); Neutrophils Absolute Auto 8.6 K/mm3 (1.3-6.7); Neutrophils Percent Auto 78.4 % (45.5-73.1); Platelet Count Result 230 k/mm3 (150-375); Red Blood Count 4.14 M/mm3 (4.2-5.4); Red Cell Distribution Width 14.2 % (11.5-14.5); White Blood Count 10.9 K/mm3 (4.5-10.0)
[2024-05-05 19:13] LABS: Creatinine Urine 198.5 mg/dL
[2024-05-05 19:18] LABS: Alanine Aminotransferase 12 U/L (6-35); Albumin Level 4.3 g/dL (3.5-5.1); Alkaline Phosphatase 101 U/L (38-126); Anion Gap 9 mmol/L (4-12); Aspartate Amino Transferase 34 U/L (14-36); Bilirubin,Total 0.3 mg/dL (0.2-1.3); Blood Urea Nitrogen 23 mg/dL (7-17); Calcium 9.5 mg/dL (8.4-10.2); Carbon Dioxide 26 mmol/L (22-30); Chloride 101 mmol/L (98-107); Cholesterol 118 mg/dL (0-200); Estimated Glomerular Filt Rate 31; Glucose 91 mg/dL (65-110); HDL Direct 50 mg/dL; Potassium 4.4 mmol/L (3.4-5.0); Sodium 136 mmol/L (137-145); Triglycerides 139 mg/dL (<150); Uric Acid 4.3 mg/dL (2.5-7.5)
[2024-05-05 19:19] LABS: MALB Creatinine Ratio 11.3 mg/g (0-30); Microalbumin Urine Random 22.5 mg/L (0-16.7)
[2024-05-05 19:40] LABS: LDL Cholesterol Direct < 30 mg/dL
[2024-05-05 19:42] LABS: Hemoglobin A1C 5.4 % (<5.7)
== END 2024-05-05 12:55 | disposition home or self-care (01) ==
PROVIDERS: PCP Family Medicine; Visit Provider Family Medicine
DX: D64.9 Anemia, unspecified (principal); M10.9 Gout, unspecified; E11.22 Type 2 diabetes mellitus with diabetic chronic kidney disease; N18.32 Chronic kidney disease, stage 3b; Z11.1 Encounter for screening for respiratory tuberculosis
CPT/HCPCS: 36415; 80053; 80061; 82043; 82607; 82728; 83036; 84550; 85025; 86480

== ENCOUNTER 2024-10-04 13:37 | Outpatient (CLI) | payer MEDICARE, SELFPAY ==
--- OUTSIDE RECORDS SUMMARY | 2024-10-04 15:15 | XMS_ITS | CONTINUITY OF CARE DOCUMENT ---
Author Name le lujan Address Unknown Organization [facility] Address [address] [place] [address] Phone [phone] Care Team Providers Care Management Accountant Name Role Phone Min BOYD, Yesika Unavailable [phone] DELONTE BROWNE MD Unavailable [phone] INSURANCE PROVIDERS Payer name Policy type / Coverage type [place] red republican ID [facility] Blue [facility] [id number] [place] [employer] Medicare [id number]
[2024-10-04 19:42] LABS: Anion Gap 13 mmol/L (4-12); Blood Urea Nitrogen 25 mg/dL (7-17); Calcium 9.5 mg/dL (8.4-10.2); Carbon Dioxide 25 mmol/L (22-30); Chloride 99 mmol/L (98-107); Estimated Glomerular Filt Rate 28; Glucose 79 mg/dL (65-110); Potassium 4.5 mmol/L (3.4-5.0); Sodium 137 mmol/L (137-145)
== END 2024-10-04 13:38 | disposition home or self-care (01) ==
PROVIDERS: PCP Family Medicine; Visit Provider Family Medicine
DX: E11.22 Type 2 diabetes mellitus with diabetic chronic kidney disease (principal); N18.32 Chronic kidney disease, stage 3b
CPT/HCPCS: 36415; 80048

== ENCOUNTER 2024-10-17 12:51 | Outpatient (CLI) | payer MEDICARE, SELFPAY ==
--- NOTE | ~2024-10-17 | US_ITS ---
US renal BI 10/17/2024 13:18 Procedure: Realtime transabdominal ultrasound of the kidneys and bladder. Indication: Chronic kidney disease stage IV Comparison: 04/03/2011 Findings: Renal echotexture is normal bilaterally without hydronephrosis, contour deforming mass or r enal calculus. The right kidney measures 9.1 cm and left kidney measures 9.4 cm. Bladder within norm al limits. Impression: 1: Unremarkable renal ultrasound. No stones, masses or hydronephrosis. Reviewed, dictated and finalized at location A. Impression: 1: Unremarkable renal ultrasound. No stones, masses or hydronephrosis.
--- OUTSIDE RECORDS SUMMARY | 2024-10-17 14:06 | XMS_ITS | CONTINUITY OF CARE DOCUMENT ---
Author Name le lujan Address Unknown Organization [facility] Address [address] [place] [address] Phone [phone] Care Team Providers Care Janitor Helper Name Role Phone Min OBYD, Yesika Unavailable DELONTE BROWNE MD Unavailable [phone] INSURANCE PROVIDERS Payer name Policy type / Coverage type [place] red alliance party ID [facility] Blue [facility] [id number] [place] [employer] Medicare [id number]
[2024-10-17 14:37] LABS: Anion Gap 12 mmol/L (4-12); Blood Urea Nitrogen 22 mg/dL (7-17); Calcium 9.2 mg/dL (8.4-10.2); Carbon Dioxide 25 mmol/L (22-30); Chloride 96 mmol/L (98-107); Estimated Glomerular Filt Rate 32; Glucose 82 mg/dL (65-110); Potassium 4.1 mmol/L (3.4-5.0); Sodium 133 mmol/L (137-145)
== END 2024-10-17 12:52 | disposition home or self-care (01) ==
PROVIDERS: PCP Family Medicine; Visit Provider Family Medicine
DX: E11.22 Type 2 diabetes mellitus with diabetic chronic kidney disease (principal); I12.9 Hypertensive chronic kidney disease with stage 1 through stage 4 chronic kidney disease, or unspecified chronic kidney disease; N18.4 Chronic kidney disease, stage 4 (severe)
CPT/HCPCS: 36415; 76775; 80048

== ENCOUNTER 2024-10-20 12:33 | Outpatient (CLI) | payer MEDICARE, SELFPAY ==
--- OUTSIDE RECORDS SUMMARY | 2024-10-20 12:46 | XMS_ITS | CONTINUITY OF CARE DOCUMENT ---
Author Name le lujan Address Unknown Organization [facility] Address [address] [place] [address] Phone [phone] Care Team Providers Care Roving Sizer Name Role Phone Min BOYD, Yesika Unavailable DELONTE BROWNE MD Unavailable [phone] INSURANCE PROVIDERS Payer name Policy type / Coverage type [place] red libertarian ID [facility] Blue [facility] [id number] [place] [employer] Medicare [id number]
[2024-10-20 19:26] LABS: Alanine Aminotransferase 15 U/L (6-35); Albumin Level 4.6 g/dL (3.5-5.1); Alkaline Phosphatase 104 U/L (38-126); Anion Gap 13 mmol/L (4-12); Aspartate Amino Transferase 43 U/L (14-36); Bilirubin,Total 0.4 mg/dL (0.2-1.3); Blood Urea Nitrogen 25 mg/dL (7-17); Calcium 9.3 mg/dL (8.4-10.2); Carbon Dioxide 22 mmol/L (22-30); Chloride 102 mmol/L (98-107); Cholesterol 155 mg/dL (0-200); Estimated Glomerular Filt Rate 31; Glucose 78 mg/dL (65-110); HDL Direct 48 mg/dL; Potassium 4.4 mmol/L (3.4-5.0); Sodium 137 mmol/L (137-145); Triglycerides 119 mg/dL (<150); Uric Acid 7.3 mg/dL (2.5-7.5)
[2024-10-20 19:37] LABS: LDL Cholesterol Direct 61 mg/dL
[2024-10-20 20:28] LABS: Creatinine Urine 134.1 mg/dL
[2024-10-20 20:35] LABS: MALB Creatinine Ratio 30.9 mg/g (0-30); Microalbumin Urine Random 41.4 mg/L (0-16.7)
[2024-10-20 20:47] LABS: Hemoglobin A1C 5.3 % (<5.7)
== END 2024-10-20 12:34 | disposition home or self-care (01) ==
LOC: ANHGOSHLAB 12:35
PROVIDERS: PCP Family Medicine; Visit Provider Family Medicine
DX: M10.9 Gout, unspecified (principal); E11.22 Type 2 diabetes mellitus with diabetic chronic kidney disease; N18.32 Chronic kidney disease, stage 3b; D64.9 Anemia, unspecified; Z79.899 Other long term (current) drug therapy
CPT/HCPCS: 36415; 80053; 80061; 82043; 82607; 82728; 83036; 84550

== ENCOUNTER 2025-01-19 11:34 | Outpatient (CLI) | payer MEDICARE, SELFPAY ==
[2025-01-19 12:57] LABS: Albumin Level 4.4 g/dL (3.5-5.1); Anion Gap 8 mmol/L (4-12); Blood Urea Nitrogen 15 mg/dL (7-17); Calcium 9.4 mg/dL (8.4-10.2); Carbon Dioxide 28 mmol/L (22-30); Chloride 98 mmol/L (98-107); Estimated Glomerular Filt Rate 40; Glucose 93 mg/dL (65-110); Potassium 4.4 mmol/L (3.4-5.0); Sodium 134 mmol/L (137-145)
[2025-01-19 13:09] LABS: Total Protein Urine Random 22 mg/dL; Ur Ttl Prot Creatinine Ratio 0.25 mg/mg (0-0.20)
[2025-01-20 08:37] LABS: Creatinine, Random Urine 84 mg/dL (20-275); Total Prot/Creat ratio mg/mg 0.131 (0.024-0.184); Total Protein/Creatinine Ratio 131 mg/g creat (24-184)
[2025-01-24 20:48] LABS: Albumin 4.0 g/dL (3.8-4.8); Gamma Globulin 0.8 g/dL (0.8-1.7)
[2025-01-25 16:44] LABS: ANCA Screen NEGATIVE (NEGATIVE)
[2025-01-27 03:23] LABS: DNA (ds) Antibody. 2 IU/mL
== END 2025-01-19 11:35 | disposition home or self-care (01) ==
PROVIDERS: PCP Family Medicine; Visit Provider Internal Medicine Nephrology
DX: E11.22 Type 2 diabetes mellitus with diabetic chronic kidney disease (principal); I12.9 Hypertensive chronic kidney disease with stage 1 through stage 4 chronic kidney disease, or unspecified chronic kidney disease; N18.32 Chronic kidney disease, stage 3b
CPT/HCPCS: 36415; 80069; 82570; 83520; 84155; 84156; 84165; 84166; 86036; 86038; 86039; 86160; 86225

== ENCOUNTER 2025-04-03 13:00 | Outpatient (CLI) | payer MEDICARE, SELFPAY ==
--- NOTE | ~2025-04-03 | MM_ITS ---
EXAMINATION: MM screening [facility] BI w mehran HISTORY: Screening TECHNIQUE: Craniocaudal and mediolateral oblique 3-D tomosynthesis images were obtained and synthetic 2-D images were generated. CAD analysis was submitted and interpreted. COMPARISON: Mammogram 04/03/2023 and 12/12/2020 BREAST PARENCHYMAL COMPOSITION: There are scattered areas of fibroglandular density. FINDINGS: There is no evidence of suspicious mass, calcification, or architectural distortion to suggest malignancy. There has been no suspicious interval change. IMPRESSION: 1. No mammographic evidence of malignancy. Recommend routine screening mammography in one year. BI-RADS Category 2: Benign finding(s) Reviewed, dictated and finalized at location Q. IMPRESSION: 1. No mammographic evidence of malignancy. Recommend routine screening mammogra phy in one year. BI-RADS Category 2: Benign finding(s)
== END 2025-04-03 13:01 | disposition home or self-care (01) ==
LOC: MICIMG 13:01
PROVIDERS: PCP Family Medicine; Visit Provider Family Medicine
DX: Z12.31 Encounter for screening mammogram for malignant neoplasm of breast (principal)
CPT/HCPCS: 77063; 77067

== ENCOUNTER 2025-06-20 11:27 | Outpatient (CLI) | payer MEDICARE, SELFPAY ==
[2025-06-20 13:08] LABS: Alanine Aminotransferase 10 U/L (6-35); Albumin Level 4.0 g/dL (3.5-5.1); Alkaline Phosphatase 69 U/L (38-126); Anion Gap 5 mmol/L (4-12); Aspartate Amino Transferase 33 U/L (14-36); Bilirubin,Total 0.4 mg/dL (0.2-1.3); Blood Urea Nitrogen 23 mg/dL (7-17); Calcium 9.2 mg/dL (8.4-10.2); Carbon Dioxide 24 mmol/L (22-30); Chloride 107 mmol/L (98-107); Cholesterol 111 mg/dL (0-200); Estimated Glomerular Filt Rate 33; Glucose 81 mg/dL (65-110); HDL Direct 49 mg/dL; Potassium 4.5 mmol/L (3.4-5.0); Sodium 136 mmol/L (137-145); Total Protein 6.9 g/dL (6.3-8.2); Triglycerides 87 mg/dL (<150); Uric Acid 7.5 mg/dL (2.5-7.5)
[2025-06-20 13:26] LABS: Hemoglobin A1C 5.3 % (<5.7)
[2025-06-20 13:27] LABS: MALB Creatinine Ratio 11.3 mg/g (0-30)
[2025-06-20 14:02] LABS: Vitamin B12 211.0 pg/mL (239-931)
== END 2025-06-20 11:28 | disposition home or self-care (01) ==
LOC: ANHGOSHLAB 11:27
PROVIDERS: PCP Family Medicine; Visit Provider Family Medicine
DX: E11.22 Type 2 diabetes mellitus with diabetic chronic kidney disease (principal); M1A.9XX0 Chronic gout, unspecified, without tophus (tophi); Z11.59 Encounter for screening for other viral diseases; E53.8 Deficiency of other specified B group vitamins
CPT/HCPCS: 36415; 80053; 80061; 82043; 82607; 83036; 84550; 86803